=== PATIENT | male | born 1970 | race Caucasian/White ===

== ENCOUNTER 2016-07-18 13:13 | Emergency (ER) | payer OTHER ==
--- NOTE | 2016-07-18 13:43 | DIAGNOSTIC IMAGING REPORT ---
PROCEDURE: CT HEAD WITHOUT CONTRAST INDICATION: TRAUMA/INJURY TECHNIQUE: Axial CT images were acquired through the head. Coronal and sagittal reformations were created. COMPARISON: None. FINDINGS: No intracranial hemorrhage or extraaxial fluid collections. Ventricles are normal in size, shape and position. There is no mass, mass effect or midline shift. The lira-white matter differentiation is normal. There is no edema. The calvarium is intact. There is fluid in the left frontal and ethmoid sinuses. IMPRESSION: 1. No CT evidence of acute intracranial process. 2. Findings discussed with Wil at 02:[address] scans at this facility use dose modulation, iterative reconstruction, and/or weight-based dosing when appropriate to reduce radiation dose to as low as reasonably achievable.
--- NOTE | 2016-07-18 13:47 | DIAGNOSTIC IMAGING REPORT ---
PROCEDURE: CT CERVICAL SPINE W/O CONTRAST INDICATION: TRAUMA/INJURY TECHNIQUE: Noncontrast axial images with sagittal and coronal reformations. COMPARISON: None. FINDINGS: Osseous structures and disc spaces are normal. No evidence of an acute process or fracture. Alignment is normal. IMPRESSION: 1. Negative CT cervical spine. No evidence of an acute process or fracture.
--- NOTE | 2016-07-18 14:18 | ED ORDER SUMMARY ---
..... Patient: SANA HANNAH OrderSheet [facility] VisitID: [id number] [address] [place] [address] 46y, M Registration Date/Time: 07/18/2016 ORDER SHEET Weight: 88.4 kg (stated) Allergies: None GENERAL ORDERS: CT Cervical Spine wo Cont Urgent (13:07/18/2016 HBivens A.R.N.P.) (Ack 13:26 Ailyn) (13:35 DMaziarka R.N.) CT Head wo Cont Urgent (13:07/18/2016 HBivens A.R.N.P.) (Ack 13:26 Ailyn) (13:35 DMarexarka R.N.) MEDICATION ORDERS: IV FLUIDS: ORDER SHEET NOTES: [Electronically signed by Renay Lozano R.N. (15:07/18/2016)] [Electronically signed by Akiko De La Torre.R.N.P. (15:02 07/18/2016)] [Electronically locked/signed by Renay Lozano R.N. (15:07/18/2016)]
--- NOTE | 2016-07-18 14:18 | ED ORDER SUMMARY ---
..... Patient: SANA HANNAH OrderSheet [facility] VisitID: [id number] [address] [place] [address] 46y, M Registration Date/Time: 07/18/2016 ORDER SHEET Weight: 88.4 kg (stated) Allergies: None GENERAL ORDERS: CT Cervical Spine wo Cont Urgent (13:07/18/2016 HBivens A.R.N.P.) (Ack 13:26 Ailyn) (13:35 DMaziarka R.N.) CT Head wo Cont Urgent (13:07/18/2016 HBivens A.R.N.P.) (Ack 13:26 Ailyn) (13:35 DMarexarka R.N.) MEDICATION ORDERS: IV FLUIDS: ORDER SHEET NOTES: [Electronically signed by Renay Lozano R.N. (15:07/18/2016)] [Electronically signed by Akiko De La Torre.R.N.P. (15:02 07/18/2016)] [Electronically locked/signed by Renay Lozano R.N. (15:07/18/2016)]
--- NOTE | 2016-07-18 14:18 | ED NURSING NOTES ---
Clinical Report - Nurses [facility] [address] [place] [address] 07/18/2016 13:16 Patient: SANA HANNAH TRIAGE Triage time 13:18. Acuity: LEVEL 3. Chief Complaint: FALL (TREE, CRUSHED BETWEEN THE TREE AND THE LADDER). Alert. ALONSO COMA SCORE: Alonso Coma Scale: 15- eyes open spontaneously (4); best verbal response- oriented x 4 (5); best motor response- obeys commands (6). --13:24 Renay Lozano R.N. 13:18 07/18/16. BP: 134/105. HR: 85. RR: 20. O2 saturation: 95%. Temp: 97.9 F. Pain level now 6/10. --13:24 Renay Lozano R.N. Weight: 88.4 kg stated. Height/Length: 70 inches Per Patient. BMI: 28. --13:21 Renay Lozano R.N. Medications None. --14:26 Renay Lozano R.N. Allergies None. --14:26 Renay Lozano R.N. History Arrived by private vehicle, and accompanied by family. Location of injuries: neck. This occurred just prior to arrival. He has had neck pain. No loss of consciousness. 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 PAST MEDICAL HX: Tetanus status: up-to-date. SOCIAL HX: Current every day heavy tobacco smoker (cigarette)- less than 1 pack per day. History of heavy drug use: marijuana. Recently used drugs today. --13:24 Renay Lozano R.N. Location of injuries: left parietal area. --13:49 Renay Lozano R.N. PROBLEMS: Dental Caries. Abscess. Nephrolithiasis. Laceration. Tetanus Status. Last Tetanus. Renal Colic. Immunizations. Kidney stones . --13:20 Renay Lozano R.N. PHYSICAL ASSESSMENT To room via wheelchair. GENERAL / NEURO / PSYCH: Alert. Oriented X 4. Appears in distress. HEENT: Neck. RESPIRATORY: Respirations not labored. EXTREMITIES: Limited ROM present. SKIN: Skin is warm. --13:24 Renay Lozano R.N. NURSING PROGRESS NOTES C-collar applied. Patient identifiers checked. Call light placed in reach. --13:25 Renay Lozano R.N. Patient transported to [place] by stretcher with tech. ([id number]). --13:35 Renay Lozano R.N. Patient returned by stretcher with tech. (13:36). --13:36 Renay Lozano R.N. 13:34 07/18/2016 Site #1 started via IV in the left antecubital space with an 18g angiocath, with aseptic technique and good blood return; one attempt. Blood drawn: rainbow set. Labeled in the presence of the patient and held. Saline lock flushed with 10 mL saline. --13:39 Daniel Gonzalez R.N. Wound cleansed with sterile saline. --13:48 Renay Lozano R.N. 13:53 07/18/16. BP: 123/89. HR: 90. RR: 18. O2 saturation: 93%. --13:55 Renay Lozano R.N. C-collar applied (Removed). --13:55 Renay Lozano R.N. 14:06 07/18/2016 Site #1 removed upon discharge. Bandage applied. --14:06 Renay Lozano R.N. DISPOSITION / DISCHARGE Departure time: 14:25. Condition at departure: improved. No learning barriers present. Discharge instructions provided and reviewed with the patient. Patient verbalized understanding. Written instructions provided in Maldivian. The patient was discharged home and accompanied by spouse. He left the Emergency Department ambulatory and via private vehicle. Patient driving. --14:25 Renay Lozano R.N. 14:16 07/18/16. BP: 120/78. HR: 88. RR: 16. O2 saturation: 95%. Pain level now 4/10. --14:25 Renay Lozano R.N. Locked/Released at 07/18/2016 15:00 by Renay Lozano R.N.
--- NOTE | 2016-07-18 14:18 | ED NURSING NOTES ---
Clinical Report - Nurses [facility] [address] [place] [address] 07/18/2016 13:16 Patient: SANA HANNAH TRIAGE Triage time 13:18. Acuity: LEVEL 3. Chief Complaint: FALL (TREE, CRUSHED BETWEEN THE TREE AND THE LADDER). Alert. ALONSO COMA SCORE: Alonso Coma Scale: 15- eyes open spontaneously (4); best verbal response- oriented x 4 (5); best motor response- obeys commands (6). --13:24 Renay Lozano R.N. 13:18 07/18/16. BP: 134/105. HR: 85. RR: 20. O2 saturation: 95%. Temp: 97.9 F. Pain level now 6/10. --13:24 Renay Lozano R.N. Weight: 88.4 kg stated. Height/Length: 70 inches Per Patient. BMI: 28. --13:21 Renay Lozano R.N. Medications None. --14:26 Renay Lozano R.N. Allergies None. --14:26 Renay Lozano R.N. History Arrived by private vehicle, and accompanied by family. Location of injuries: neck. This occurred just prior to arrival. He has had neck pain. No loss of consciousness. 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 PAST MEDICAL HX: Tetanus status: up-to-date. SOCIAL HX: Current every day heavy tobacco smoker (cigarette)- less than 1 pack per day. History of heavy drug use: marijuana. Recently used drugs today. --13:24 Renay Lozano R.N. Location of injuries: left parietal area. --13:49 Renay Lozano R.N. PROBLEMS: Dental Caries. Abscess. Nephrolithiasis. Laceration. Tetanus Status. Last Tetanus. Renal Colic. Immunizations. Kidney stones . --13:20 Renay Lozano R.N. PHYSICAL ASSESSMENT To room via wheelchair. GENERAL / NEURO / PSYCH: Alert. Oriented X 4. Appears in distress. HEENT: Neck. RESPIRATORY: Respirations not labored. EXTREMITIES: Limited ROM present. SKIN: Skin is warm. --13:24 Renay Lozano R.N. NURSING PROGRESS NOTES C-collar applied. Patient identifiers checked. Call light placed in reach. --13:25 Renay Lozano R.N. Patient transported to [place] by stretcher with tech. ([id number]). --13:35 Renay Lozano R.N. Patient returned by stretcher with tech. (13:36). --13:36 Renay Lozano R.N. 13:34 07/18/2016 Site #1 started via IV in the left antecubital space with an 18g angiocath, with aseptic technique and good blood return; one attempt. Blood drawn: rainbow set. Labeled in the presence of the patient and held. Saline lock flushed with 10 mL saline. --13:39 Daniel Gonzalez R.N. Wound cleansed with sterile saline. --13:48 Renay Lozano R.N. 13:53 07/18/16. BP: 123/89. HR: 90. RR: 18. O2 saturation: 93%. --13:55 Renay Lozano R.N. C-collar applied (Removed). --13:55 Renay Lozano R.N. 14:06 07/18/2016 Site #1 removed upon discharge. Bandage applied. --14:06 Renay Lozano R.N. DISPOSITION / DISCHARGE Departure time: 14:25. Condition at departure: improved. No learning barriers present. Discharge instructions provided and reviewed with the patient. Patient verbalized understanding. Written instructions provided in Zambian. The patient was discharged home and accompanied by spouse. He left the Emergency Department ambulatory and via private vehicle. Patient driving. --14:25 Renay Lozano R.N. 14:16 07/18/16. BP: 120/78. HR: 88. RR: 16. O2 saturation: 95%. Pain level now 4/10. --14:25 Renay Lozano R.N. Locked/Released at 07/18/2016 15:00 by Renay Lozano R.N.
--- NOTE | 2016-07-18 14:18 | ED CLINICAL REPORT ---
Clinical Report - Physicians/Mid Levels [facility] [address] [place] [address] 07/18/2016 13:16 Patient: SANA HANNAH Time Seen: 1310; upon arrival, initial patient contact, initial documentation, patient care assumed. Arrived- By private vehicle. Historian- patient. HISTORY OF PRESENT ILLNESS Chief Complaint: INJURY TO HEAD. Location of injuries- head. The injury occurred just prior to arrival. ( head got stuck between tree and ladder, standing on ladder, cutting tree, tree started to lean and got head caught between tree and metal ladder, got head out, came down off ladder and came here). Occurred at home. The patient complains of moderate pain. The patient sustained a blow to the head and complains of neck pain. No loss of consciousness or seizure. Not dazed. REVIEW OF SYSTEMS No numbness, loss of vision, chest pain, weakness or difficulty breathing. He sustained skin laceration. All systems otherwise negative, except as recorded above. PAST HISTORY See nurses notes. PROBLEMS: Dental Caries. Abscess. Nephrolithiasis. Laceration. Tetanus Status. Last Tetanus. Renal Colic. Immunizations. Kidney stones . --13:20 Renay Lozano R.N. Tetanus immunization status is unknown. SOCIAL HISTORY Light tobacco smoker. Occasional alcohol use. History of occasional drug use: marijuana. No recent travel. Is a local resident. FAMILY HISTORY No significant family medical history. ADDITIONAL NOTES The nursing notes have been reviewed with agreement regarding the chief complaint, HPI, ROS, PMH and patient medications and allergies. PHYSICAL EXAM Vital Signs: 07/18/2016 13:18 BP: 134/105. HR: 85. RR: 20. O2 saturation: 95%. Temp: 97.9 F. Have been reviewed as abnormal and appear to be correct. Hypertensive. Heart rate normal. Respiratory rate normal. Temperature normal. Oxygen saturation normal. Appearance: Alert. No acute distress. Head: Head tender. No swelling of head. Left parietal area: moderate tenderness, subcutaneous 1.0 cm laceration and visualized foreign body of the upper anterior aspect of the left parietal area. No erythema, swelling, abrasion, ecchymosis or puncture wound. No deformity. Eyes: Pupils equal, round and reactive to light. EOM intact. ENT: No dental injury. Pharynx normal. Neck: Painful ROM in the neck. Mild pain in the entire posterior neck upon turning the head to the right, turning the head to the left, lifting the head, flexing the neck and extending the neck. Tenderness present. Mild vertebral tenderness of the upper, mid and lower cervical spine. (c collar immediately applied after neck exam, and pt placed into c spine precautions). CVS: Normal heart rate and rhythm. Heart sounds normal. Pulses normal. Respiratory: Breath sounds normal. Chest nontender. Abdomen: Soft and nontender. No organomegaly. Back: No tenderness. ROM normal. Skin: Skin intact. Skin warm and dry. Normal skin color. Normal skin turgor. Extremities: Normal inspection. Pelvis stable. Extremities atraumatic. No lower extremity edema. Neuro: Oriented X 3. Mood/affect normal. Speech normal. No motor deficit. No sensory deficit. LABS, X-RAYS, AND EKG CT C-Spine: No acute disease. (IMPRESSION: 1. Negative CT cervical spine. No evidence of an acute process or fracture. Electronically Final signed by:Freddy Young MD 07/18/2016 1:47:44 PM). The study was interpreted by the radiologist and discussed with the radiologist. CT Head: No acute disease. (IMPRESSION: 1. No CT evidence of acute intracranial process. 2. Findings discussed with Wil at 02:[address] scans at this facility use dose modulation, iterative reconstruction, and/or weight-based dosing when appropriate to reduce radiation dose to as low as reasonably achievable. Electronically Final signed by:Freddy Young MD 07/18/2016 1:43:09 PM). The study was interpreted by the radiologist and discussed with the radiologist. PROGRESS AND PROCEDURES Removal of Soft Tissue Foreign Body: The foreign body was wood. Located in the scalp. Prior to the procedure the risks, benefits and alternatives to the procedure were explained. Foreign body visualized using forceps. wound irrigated and cleaned out after per nurse/tech, see other notes. Tetanus immunization up-to-date. Course of Care: Lac to L side of head 1cm long, options discussed with pt to either close with staple or leave open, risks discussed with doing no closure vs leaving it open, and fb risks, pt decided to leave wound open so that he could clean it out even better at home over the next few days x2 pieces each about 1/2 cm long of wood removed from cut c collar removed after ct results. Patient counseled in person regarding the patient's stable condition, test results and diagnosis. Differential Diagnosis: Other possible considerations: head injury, icb, sah, fx, cspine fx, concussion, lac, fb, contusions. Above considerations are based on history, physical exam, reassessment and other information. Differential diagnosis was discussed with patient. Disposition: Discharged home in good and improved condition (14:17). Condition: good and stable. CLINICAL IMPRESSION Deep laceration to the scalp. Foreign body present.Treatment of laceration not delayed. No infection. Minor closed head injury. Left cerebral laceration. No loss of consciousness. INSTRUCTIONS Apply ice for 20 minutes four times a day for two days until better. Don't apply ice directly to skin. Protect wound and keep wound area clean. Soak in warm soapy water. Apply bacitracin twice daily. Warnings: HEAD INJURY PRECAUTIONS: An observer must check on the patient frequently for the next 24 hours to confirm that the patient responds as expected, is not confused, has no new weakness or numbness, and has no other problems. TETANUS: You were given a tetanus shot during your visit. Make a note for future reference. GENERAL WARNINGS: Return or contact your physician immediately if your condition worsens or changes unexpectedly, if not improving as expected, or if other problems arise. Specifically return if problem worsens. Prescription Medications: Cephalexin 500 mg: take 1 capsule orally every 12 hours for 10 days. No refill. Ultram 50 mg tablets: take 1-2 orally every 6 hours as needed for pain. Dispense twenty (20). No refills. Substitution is permissible. Follow-up: Follow up with your doctor in about three days even if well and for wound check. Call for an appointment. Summary of care provided to patient. Understanding of the discharge instructions verbalized by patient. (Electronically signed by Akiko De La Torre A.R.N.P. 07/18/2016 15:02)
--- NOTE | 2016-07-18 15:02 | ED MED RECONCILIATION SUMMARY ---
Patient: SANA HANNAH Medication Reconciliation Report [facility] VisitID: [id number] [address] [place] [address] 46y, M Registration Date/Time: 07/18/2016 Weight: 88.4 kg Height/Length: 70 in. BMI: 28.0 ALLERGIES: None The patient's Home Medications are listed below: NONE. The source(s) of the original Home Medication information: Not obtained. The following Medications were given to the patient in the Emergency Department: None. The following Medications were prescribed to the patient: Cephalexin 500 mg: take 1 capsule orally every 12 hours for 10 days. No refill. -- Akiko De La Torre A.R.N.P. Ultram 50 mg tablets: take 1-2 orally every 6 hours as needed for pain. Dispense twenty (20). No refills. Substitution is permissible. -- Akiko De La Torre A.R.N.P.
--- NOTE | 2016-07-18 15:02 | ED MAR SUMMARY ---
..... Medication Administration Record [facility] [address] [place] [address] Patient: SANA HANNAH Visit ID: [id number] 46y, M Weight: 88.4 kg Height/Length: 70 in BMI: 28 ALLERGIES: None
--- NOTE | 2016-07-18 15:02 | ED MAR SUMMARY ---
..... Medication Administration Record [facility] [address] [place] [address] Patient: SANA HANNAH Visit ID: [id number] 46y, M Weight: 88.4 kg Height/Length: 70 in BMI: 28 ALLERGIES: None
--- NOTE | 2016-07-18 15:02 | ED MED RECONCILIATION SUMMARY ---
Patient: SANA HANNAH Medication Reconciliation Report [facility] VisitID: [id number] [address] [place] [address] 46y, M Registration Date/Time: 07/18/2016 Weight: 88.4 kg Height/Length: 70 in. BMI: 28.0 ALLERGIES: None The patient's Home Medications are listed below: NONE. The source(s) of the original Home Medication information: Not obtained. The following Medications were given to the patient in the Emergency Department: None. The following Medications were prescribed to the patient: Cephalexin 500 mg: take 1 capsule orally every 12 hours for 10 days. No refill. -- Akiko De La Torre A.R.N.P. Ultram 50 mg tablets: take 1-2 orally every 6 hours as needed for pain. Dispense twenty (20). No refills. Substitution is permissible. -- Akiko De La Torre A.R.N.P.
--- NOTE | 2016-07-18 15:02 | ED DISCHARGE INSTRUCTIONS ---
Patient: SANA HANNAH General Instructions [facility] VisitID: [id number] Rob[place] [address] 46y, M Registration Date/Time: 07/18/2016 Deep laceration to the scalp. Foreign body present.Treatment of laceration not delayed. No infection. Minor closed head injury. Left cerebral laceration. No loss of consciousness. INSTRUCTIONS Apply ice for 20 minutes four times a day for two days until better. Don't apply ice directly to skin. Protect wound and keep wound area clean. Soak in warm soapy water. Apply bacitracin twice daily. Warnings: HEAD INJURY PRECAUTIONS: An observer must check on the patient frequently for the next 24 hours to confirm that the patient responds as expected, is not confused, has no new weakness or numbness, and has no other problems. TETANUS: You were given a tetanus shot during your visit. Make a note for future reference. GENERAL WARNINGS: Return or contact your physician immediately if your condition worsens or changes unexpectedly, if not improving as expected, or if other problems arise. Specifically return if problem worsens. Prescription Medications: Cephalexin 500 mg: take 1 capsule orally every 12 hours for 10 days. No refill. Ultram 50 mg tablets: take 1-2 orally every 6 hours as needed for pain. Dispense twenty (20). No refills. Substitution is permissible. Follow-up: Follow up with your doctor in about three days even if well and for wound check. Call for an appointment. Summary of care provided to patient. Understanding of the discharge instructions verbalized by patient. ADDITIONAL INFORMATION Head Injury, No Wake-Up (Adult) You have had a head injury. It does not appear serious at this time. Symptoms of a more serious problem (concussion, bruising, or bleeding in the brain) may appear later. Therefore, watch for the WARNING SIGNS listed below. Home Care: Your healthcare provider will tell you whether its okay to drive. If so, you can drive yourself home. For the next day or so, be careful when driving or using heavy machinery until you are sure you have no delayed symptoms. During the next 24 hours someone must stay with you to check for the signs below. It is not necessary to stay awake or be awakened during the night. If you have swelling of the face or scalp, apply an ice pack (ice cubes in a plastic bag, wrapped in a towel) for 20 minutes. Do this every 1-2 hours until the swelling starts to go down. Do not use aspirin or ibuprofen (Motrin, Advil) after a head injury.You may use acetaminophen (Tylenol)to control pain, unless another pain medicine was prescribed. [NOTE: If you have chronic liver or kidney disease or ever had a stomach ulcer or GI bleeding, talk with your doctor before using these medicines.] For the next 24 hours: Do not take alcohol, sedatives or medicines that make you sleepy. Avoid strenuous activities. No lifting or straining. If you have had any symptoms of a concussion today (nausea, vomiting, dizziness, confusion, headache, memory loss or if you were knocked out), do not return to sports or any activity that could result in another head injury until all symptoms are gone and you have been cleared by your doctor. A second head injury before fully recovering from the first one can lead to serious brain injury. Follow Up with your doctor if symptoms are not improving after 24 hours, or as directed. [NOTE: A radiologist will review any X-rays or CT scans that were taken. We will notify you of any new findings that may affect your care.] Get Prompt Medical Attention if any of the followingWARNING SIGNS occur: Repeated vomiting Severe or worsening headache or dizziness Unusual drowsiness, or unable to awaken as usual Confusion or change in behavior or speech, memory loss, blurred vision Convulsion (seizure) Increasing scalp or face swelling Redness, warmth or pus from the swollen area Fluid drainage or bleeding from the nose or ears Laceration, Scalp (Sutures Or [place]) A laceration is a cut through the skin. This will require stitches (sutures) or cynthia if it is deep. Home care The following guidelines will help you care for your laceration at home: During the first two days you may carefully rinse your hair in the shower to remove blood, glass or dirt particles. After two days you may shower and shampoo your hair normally. Have someone help you clean your wound every day: In the shower, wash the area with soap and water. Use a wet cotton swab to loosen and remove any blood or crust that forms. After cleaning, keep the wound clean and dry. Talk with your doctor before applying any antibiotic ointment to the wound. Reapply a fresh bandage. Do not put your head under water (no swimming) until the stitches or cynthia have been removed. The doctor may prescribe an antibiotic cream or ointment to prevent infection. Do not stop taking this medication until you have finished the prescribed course or the doctor tells you to stop. The doctor may also prescribe medications for pain. Follow the doctors instructions for taking these medications. If you have chronic liver or kidney disease or ever had a stomach ulcer or GI bleeding, talk with your doctor before using these medicines. Follow-up care Follow up with your health care provider. Most scalp wounds heal within seven days. However, an infection can sometimes occur. Check the wound daily for the warning signs listed below. Stitches or cynthia should be removed from the scalp in about 57 days. When to seek medical care Get prompt medical attention if any of these occur: Increasing pain in the wound Redness, swelling, or pus coming from the wound Fever of 100.4F (38C) or higher, or as directed by your health care provider If stitches or cynthia come apart or fall out before your next appointment If the wound edges re-open Bleeding not controlled by direct pressure Head Injury, No Wake-Up (Adult) You have had a head injury. It does not appear serious at this time. Symptoms of a more serious problem (concussion, bruising, or bleeding in the brain) may appear later. Therefore, watch for the WARNING SIGNS listed below. Home Care: Your healthcare provider will tell you whether its okay to drive. If so, you can drive yourself home. For the next day or so, be careful when driving or using heavy machinery until you are sure you have no delayed symptoms. During the next 24 hours someone must stay with you to check for the signs below. It is not necessary to stay awake or be awakened during the night. If you have swelling of the face or scalp, apply an ice pack (ice cubes in a plastic bag, wrapped in a towel) for 20 minutes. Do this every 1-2 hours until the swelling starts to go down. Do not use aspirin or ibuprofen (Motrin, Advil) after a head injury.You may use acetaminophen (Tylenol)to control pain, unless another pain medicine was prescribed. [NOTE: If you have chronic liver or kidney disease or ever had a stomach ulcer or GI bleeding, talk with your doctor before using these medicines.] For the next 24 hours: Do not take alcohol, sedatives or medicines that make you sleepy. Avoid strenuous activities. No lifting or straining. If you have had any symptoms of a concussion today (nausea, vomiting, dizziness, confusion, headache, memory loss or if you were knocked out), do not return to sports or any activity that could result in another head injury until all symptoms are gone and you have been cleared by your doctor. A second head injury before fully recovering from the first one can lead to serious brain injury. Follow Up with your doctor if symptoms are not improving after 24 hours, or as directed. [NOTE: A radiologist will review any X-rays or CT scans that were taken. We will notify you of any new findings that may affect your care.] Get Prompt Medical Attention if any of the followingWARNING SIGNS occur: Repeated vomiting Severe or worsening headache or dizziness Unusual drowsiness, or unable to awaken as usual Confusion or change in behavior or speech, memory loss, blurred vision Convulsion (seizure) Increasing scalp or face swelling Redness, warmth or pus from the swollen area Fluid drainage or bleeding from the nose or ears Head Injury With Wake-Up (Adult) You have had a head injury. It does not appear serious at this time. Symptoms of a more serious problem (concussion, bruising, or bleeding in the brain) may appear later. Therefore, watch for the WARNING SIGNS listed below. Home Care: During the next 24 hours someone must stay with you. This person should wake you every 2 hours to check for the signs below. If you have swelling of the face or scalp, apply an ice pack (ice cubes in a plastic bag, wrapped in a towel) for 20 minutes every 1-2 hours until the swelling starts to go down. Do not use aspirin or ibuprofen (Motrin, Advil) after a head injury. You may use acetaminophen (Tylenol) to control pain, unless another pain medicine was prescribed. [NOTE: If you have chronic liver or kidney disease or ever had a stomach ulcer or GI bleeding, talk with your doctor before using these medicines.] For the next 24 hours: Do not take alcohol, sedatives, or medicines that make you sleepy. Do not drive or operate machinery. Avoid strenuous activities. No lifting or straining. If you have had any symptoms of a concussion today (nausea, vomiting, dizziness, confusion, headache, memory loss, or you were knocked out), do not return to sports or any activity that could result in another head injury until all symptoms are gone and you have been cleared by your doctor. A second head injury before fully recovering from the first one can lead to serious brain injury. Follow Up with your doctor if symptoms are not improving after 24 hours, or as directed. [NOTE: A radiologist will review any X-rays or CT scans that were taken. We will notify you of any new findings that may affect your care.] Get Prompt Medical Attention if any of the following WARNING SIGNS occur: Repeated vomiting Severe or worsening headache or dizziness Unusual drowsiness, or unable to awaken as usual Confusion or change in behavior or speech, memory loss, blurred vision Convulsion (seizure) Increasing scalp or face swelling Redness, warmth or pus from the swollen area Fluid drainage or bleeding from the nose or ears Diphtheria Toxoid Adsorbed, Pertussis Vaccine, Acellular (Adsorbed), Tetanus Toxoid, Adsorbed Suspension for injection What is this medicine? DIPHTHERIA and TETANUS TOXOIDS; PERTUSSIS VACCINE (dif THEER ee and TET n us TOK soids; per TUS iss vak SEEN) is used to prevent diphtheria, tetanus, and pertussis infections. How should I use this medicine? This vaccine is for injection into a muscle. It is given by a health before and after school daycare worker. A copy of Vaccine Information Statements will be given before each vaccination. Read this sheet carefully each time. The sheet may change frequently. Talk to your director child regarding the use of this vaccine in children. While the DTP vaccine may be given to children ages 6 weeks to 7 years and the Tdap vaccine may be given to children at least 10 years old, precautions do apply. What side effects may I notice from receiving this medicine? Side effects that you should report to your doctor or health before and after school daycare worker as soon as possible: allergic reactions like skin rash, itching or hives, swelling of the face, lips, or tongue breathing problems fever of 103 degrees F or more flu-like symptoms inconsolable crying infection pain, tingling, numbness in the hands or feet seizures swelling of arm or leg that was injected unusually weak or tired Side effects that usually do not require immediate medical attention (report these side effects to your doctor or health before and after school daycare worker if they continue or are bothersome): fussy, irritable loss of appetite fever of 102 degrees F or less pain, tenderness, redness, swelling, or a 'knot' at site where injected vomiting What may interact with this medicine? immune globulin medicines that suppress your immune function like adalimumab, anakinra, infliximab medicines to treat cancer medicines that treat or prevent blood clots like warfarin, enoxaparin, and dalteparin steroid medicines like prednisone or cortisone What if I miss a dose? It is important not to miss your dose. Call your doctor or health before and after school daycare worker if you are unable to keep an appointment. Where should I keep my medicine? This drug is given in a hospital or clinic and will not be stored at home. What should I tell my health care provider before I take this medicine? They need to know if you have any of these conditions: blood disorders like hemophilia fever or infection immune system problems neurologic disease seizures an unusual or allergic reaction to vaccines, thimerosal, latex, other medicines, foods, dyes, or preservatives or trying to get breast-feeding What should I watch for while using this medicine? See your health care provider for all shots of this vaccine as directed. To have protection from infection, you must have 3 shots of this vaccine plus boosters as needed. Tell your doctor right away if you have any serious or unusual side effects after getting this vaccine. Cephalexin Monohydrate Oral tablet What is this medicine? CEPHALEXIN (sef a CANDI in) is a cephalosporin antibiotic. It is used to treat certain kinds of bacterial infections It will not work for colds, flu, or other viral infections. How should I use this medicine? Take this medicine by mouth with a full glass of water. Follow the directions on the prescription label. This medicine can be taken with or without food. Take your medicine at regular intervals. Do not take your medicine more often than directed. Take all of your medicine as directed even if you think you are better. Do not skip doses or stop your medicine early. Talk to your director child regarding the use of this medicine in children. While this drug may be prescribed for selected conditions, precautions do apply. What side effects may I notice from receiving this medicine? Side effects that you should report to your doctor or health before and after school daycare worker as soon as possible: allergic reactions like skin rash, itching or hives, swelling of the face, lips, or tongue breathing problems pain or trouble passing urine redness, blistering, peeling or loosening of the skin, including inside the mouth severe or watery diarrhea unusually weak or tired yellowing of the eyes, skin Side effects that usually do not require medical attention (report to your doctor or health before and after school daycare worker if they continue or are bothersome): gas or heartburn genital or anal irritation headache joint or muscle pain nausea, vomiting What may interact with this medicine? probenecid some other antibiotics What if I miss a dose? If you miss a dose, take it as soon as you can. If it is almost time for your next dose, take only that dose. Do not take double or extra doses. There should be at least 4 to 6 hours between doses. Where should I keep my medicine? Keep out of the reach of children. Store at room temperature between 59 and 86 degrees F (15 and 30 degrees C). Throw away any unused medicine after the expiration date. What should I tell my health care provider before I take this medicine? They need to know if you have any of these conditions: kidney disease stomach or intestine problems, especially colitis an unusual or allergic reaction to cephalexin, other cephalosporins, penicillins, other antibiotics, medicines, foods, dyes or preservatives or trying to get breast-feeding What should I watch for while using this medicine? Tell your doctor or health before and after school daycare worker if your symptoms do not begin to improve in a few days. Do not treat diarrhea with over the counter products. Contact your doctor if you have diarrhea that lasts more than 2 days or if it is severe and watery. If you have diabetes, you may get a false-positive result for sugar in your urine. Check with your doctor or health before and after school daycare worker. Tramadol Hydrochloride Oral tablet What is this medicine? TRAMADOL (TRA ma dole) is a pain reliever. It is used to treat moderate to severe pain in adults. How should I use this medicine? Take this medicine by mouth with a full glass of water. Follow the directions on the prescription label. If the medicine upsets your stomach, take it with food or milk. Do not take more medicine than you are told to take. Talk to your director child regarding the use of this medicine in children. Special care may be needed. What side effects may I notice from receiving this medicine? Side effects that you should report to your doctor or health before and after school daycare worker as soon as possible: allergic reactions like skin rash, itching or hives, swelling of the face, lips, or tongue breathing difficulties, wheezing confusion itching light headedness or fainting spells redness, blistering, peeling or loosening of the skin, including inside the mouth seizures Side effects that usually do not require medical attention (report to your doctor or health before and after school daycare worker if they continue or are bothersome): constipation dizziness drowsiness headache nausea, vomiting What may interact with this medicine? Do not take this medicine with any of the following medications: MAOIs like Carbex, Eldepryl, Marplan, Nardil, and Parnate This medicine may also interact with the following medications: alcohol or medicines that contain alcohol antihistamines benzodiazepines bupropion carbamazepine or oxcarbazepine clozapine cyclobenzaprine digoxin furazolidone linezolid medicines for depression, anxiety, or psychotic disturbances medicines for migraine headache like almotriptan, eletriptan, frovatriptan, naratriptan, rizatriptan, sumatriptan, zolmitriptan medicines for pain like pentazocine, buprenorphine, butorphanol, meperidine, nalbuphine, and propoxyphene medicines for sleep muscle relaxants naltrexone phenobarbital phenothiazines like perphenazine, thioridazine, chlorpromazine, mesoridazine, fluphenazine, prochlorperazine, promazine, and trifluoperazine procarbazine warfarin What if I miss a dose? If you miss a dose, take it as soon as you can. If it is almost time for your next dose, take only that dose. Do not take double or extra doses. Where should I keep my medicine? Keep out of the reach of children. Store at room temperature between 15 and 30 degrees C (59 and 86 degrees F). Keep container tightly closed. Throw away any unused medicine after the expiration date. What should I tell my health care provider before I take this medicine? They need to know if you have any of these conditions: brain tumor depression drug abuse or addiction head injury if you frequently drink alcohol containing drinks kidney disease or trouble passing urine liver disease lung disease, asthma, or breathing problems seizures or epilepsy suicidal thoughts, plans, or attempt; a previous suicide attempt by you or a family member an unusual or allergic reaction to tramadol, codeine, other medicines, foods, dyes, or preservatives or trying to get breast-feeding What should I watch for while using this medicine? Tell your doctor or health before and after school daycare worker if your pain does not go away, if it gets worse, or if you have new or a different type of pain. You may develop tolerance to the medicine. Tolerance means that you will need a higher dose of the medicine for pain relief. Tolerance is normal and is expected if you take this medicine for a long time. Do not suddenly stop taking your medicine because you may develop a severe reaction. Your body becomes used to the medicine. This does NOT mean you are addicted. Addiction is a behavior related to getting and using a drug for a non-medical reason. If you have pain, you have a medical reason to take pain medicine. Your doctor will tell you how much medicine to take. If your doctor wants you to stop the medicine, the dose will be slowly lowered over time to avoid any side effects. You may get drowsy or dizzy. Do not drive, use machinery, or do anything that needs mental alertness until you know how this medicine affects you. Do not stand or sit up quickly, especially if you are an older patient. This reduces the risk of dizzy or fainting spells. Alcohol can increase or decrease the effects of this medicine. Avoid alcoholic drinks. You may have constipation. Try to have a bowel movement at least every 2 to 3 days. If you do not have a bowel movement for 3 days, call your doctor or health before and after school daycare worker. Your mouth may get dry. Chewing sugarless gum or sucking hard candy, and drinking plenty of water may help. Contact your doctor if the problem does not go away or is severe. You have been given the following additional information: HEAD INJURY, No Wake-Up (Adult) Laceration, Scalp HEAD INJURY, No Wake-Up (Adult) HEAD INJURY with Wake-Up (Adult) Diphtheria Toxoid Adsorbed, Pertussis Vaccine, Acellular (Adsorbed), Tetanus Toxoid, Adsorbed Suspension for injection Cephalexin Monohydrate Oral tablet Tramadol Hydrochloride Oral tablet (Electronically signed by Akiko De La Torre A.R.N.P. 07/18/2016 15:02)
== END 2016-07-18 14:25 | disposition home or self-care (01) ==
LOC: ED SRH 13:13
DX: S01.02XA Laceration with foreign body of scalp, initial encounter (principal); S09.90XA Unspecified injury of head, initial encounter; W23.1XXA Caught, crushed, jammed, or pinched between stationary objects, initial encounter; Y93.H2 Activity, gardening and landscaping; Y92.007 Garden or yard of unspecified non-institutional (private) residence as the place of occurrence of the external cause; Y99.9 Unspecified external cause status

== ENCOUNTER 2016-09-21 15:08 | Emergency (ER) | payer OTHER ==
--- NOTE | 2016-09-21 16:20 | DIAGNOSTIC IMAGING REPORT ---
PROCEDURE: CT ABDOMEN/PELVIS W/O CONTRAST INDICATION: Right flank pain and hematuria. TECHNIQUE: Noncontrast axial images were obtained of the entire abdomen and pelvis with sagittal and coronal reformations. COMPARISON: CT abdomen/pelvis 09/09/2013. FINDINGS: ABDOMEN: There are three nonobstructing right renal calculi (one - 4.5 mm). No additional urinary calculi. No hydronephrosis. Lung base are clear. Heart size is normal. Liver, gallbladder, pancreas, spleen and adrenal glands are normal. Tortuous abdominal aorta. Mild descending colon diverticulosis. Stool throughout the large bowel. PELVIS: Moderate sigmoid diverticulosis. Appendix not visualized but no evidence of acute appendicitis. There is no pelvic mass, inflammatory changes or free fluid. Mild degenerative changes of the spine. IMPRESSION: 1. Three nonobstructing right renal calculi 2. Diverticulosis 3. Obstipation 4. Results discussed with Kymberly De León. All CT scans at this facility use dose modulation, iterative reconstruction, and/or weight-based dosing when appropriate to reduce radiation dose to as low as reasonably achievable.
--- NOTE | 2016-09-21 16:31 | ED NURSING NOTES ---
Clinical Report - Nurses [facility] [place] [address] 09/21/2016 15:08 Patient: SANA HANNAH TRIAGE Triage time 15:18. Acuity: LEVEL 3. Chief Complaint: (Lower Back Pain). --15:21 Sheriff Singh R.N. 15:18 09/21/16. BP: 132/81. HR: 90. RR: 20. O2 saturation: 100%. Temp: 99.5 F. Pain level now: 12/05. --15:21 Sheriff Singh R.N. Weight: 88.4 kg stated. Height/Length: 71 inches Per Patient. BMI: 27.2. --15:20 Sheriff Singh R.N. Medications None. --15:19 Sheriff Singh R.N. Allergies None. --15:19 Sheriff Singh R.N. History Arrived by private vehicle. Historian: patient. This started last night. ( History stones). SURGERY HX: Lithotripsy. SOCIAL HX: Light tobacco smoker- less than 1/2 a pack per day. History of drug use: marijuana. No alcohol use. FALL RISK ASSESSMENT: Fall risk assessment completed. No fall risk identified. NUTRITIONAL RISK ASSESSMENT: The nutritional risk assessment revealed no deficiencies. FUNCTIONAL ASSESSMENT: Functional assessment: no impairments noted. LEARNING NEEDS ASSESSMENT: The learning needs assessment revealed no barriers. SKIN INTEGRITY ASSESSMENT: Skin integrity risk assessment completed. No skin integrity risk identified. --15:21 Sheriff Singh R.N. PROBLEMS: Head Injury. Dental Caries. Abscess. Nephrolithiasis. Laceration. Tetanus Status. Last Tetanus. Renal Colic. Immunizations. Kidney stones . --15:19 Sheriff Singh R.N. Interventions ID band on patient. --15:21 Sheriff Singh R.N. NURSING PROGRESS NOTES 15:40 09/21/2016 Site #1 started via IV in the left antecubital space with an 20g angiocath, with aseptic technique and good blood return; one attempt. Blood drawn: rainbow set. Labeled in the presence of the patient and sent to the lab. Saline lock flushed with 10 mL saline. --15:40 Sheriff Singh R.N. 15:40 09/21/2016 Started bag #1 1000 mL IV Fluids IV NS (Saline); at 1000 mL/hr over 1 hour(s) via site #1 via IV pump. Allergies verified and confirmed 5 rights. IV patency established site checked: no pain, redness, or swelling flushed thoroughly pre- and post-medication administration. --15:40 Sheriff Singh R.N. 15:41 09/21/2016 Dilaudid (HYDROmorphone HCl PF) IVP 1 mg given. via site #1. Allergies verified, confirmed 5 rights and sedative warning given to the patient. IV patency established. IV site checked: no pain, redness, or swelling. IV flushed thoroughly pre- and post-medication administration. IVP given by PA. --15:41 Sheriff Singh R.N. 15:49 09/21/2016 Zofran (Ondansetron HCl) IVP 4 mg given. via site #1. Allergies verified and confirmed 5 rights. IV patency established. IV site checked: no pain, redness, or swelling. IV flushed thoroughly pre- and post-medication administration. IVP given by RN. --15:49 Sheriff Singh R.N. 16:32 09/21/2016 Dilaudid (HYDROmorphone HCl PF) IVP 0.5 mg given. via site #1. Allergies verified, confirmed 5 rights and sedative warning given to the patient. IV patency established. IV site checked: no pain, redness, or swelling. IV flushed thoroughly pre- and post-medication administration. IVP given by RN. --16:33 Sheriff Singh R.N. 16:33 09/21/2016 Flomax (Tamsulosin HCl) PO 0.4 mg given. Allergies verified and confirmed 5 rights. --16:33 Sheriff Singh R.N. DISPOSITION / DISCHARGE Condition at departure: stable. No learning barriers present. Discharge instructions provided and reviewed with the patient. Reviewed medication(s) side effects, precautions, dosing and course information. Prescription(s) given to the patient. Work note given. Patient verbalized understanding. Written instructions provided in Lao. The patient was discharged by the physician dental office assistant. He was discharged home and unaccompanied at time of discharge. He left the Emergency Department ambulatory and via private vehicle. Patient driving. --16:42 Sheriff Singh R.N. 16:41 09/21/16. BP: 120/75. HR: 68. RR: 20. O2 saturation: 92%. Pain level now: 08/05. --16:42 Sheriff Singh R.N. Locked/Released at 09/21/2016 16:42 by Sheriff Singh R.N.
--- NOTE | 2016-09-21 16:31 | ED ORDER SUMMARY ---
..... Patient: SANA HANNAH OrderSheet [facility] VisitID: [id number] [address] [place] [address] 46y, M Registration Date/Time: 09/21/2016 ORDER SHEET Weight: 88.4 kg (stated) Allergies: None GENERAL ORDERS: CBC w Diff Urgent (15:34 09/21/2016 ABlanchette PA-C) (Ack 15:37 IJurca ER Tech1) CMP Urgent (15:34 09/21/2016 ABlanchette PA-C) (Ack 15:37 IJurca ER Tech1) UA-Culture if indicated Urgent (15:34 09/21/2016 ABlanchette PA-C) (Ack 15:37 IJurca ER Tech1) CT Abd/Pel wo Cont (history of obstructing stones, acute pain starting early am) Urgent (15:41 09/21/2016 ABlanchette PA-C) (Ack 15:53 IJurca ER Tech1) (16:04 Calli) MEDICATION ORDERS: Flomax PO 0.4 mg (Do not crush or chew, NOW) (16:28 09/21/2016 ABlanchette PA-C) (16:33 SSambou R.N.) IV FLUIDS: Dilaudid IV 1 mg (HIGH ALERT MEDICATION, NOW) (15:34 09/21/2016 ABlanchette PA-C) (15:41 SSambou R.N.) IV NS : initial bolus none -, then 1000 mL/hr for X1 (NOW) (15:34 09/21/2016 ABlanchette PA-C) (15:40 SSambou R.N.) Zofran IV 4 mg (NOW) (15:42 09/21/2016 ABlanchette PA-C) (15:49 SSambou R.N.) Dilaudid IV 0.5 mg (HIGH ALERT MEDICATION, NOW) (16:28 09/21/2016 ABlanchette PA-C) (16:33 SSambou R.N.) ORDER SHEET NOTES: [Electronically signed by Sheriff Kelly Singh (16:42 09/21/2016)] [Electronically signed by Kymberly De León PA-C (23:48 09/21/2016)] [Electronically locked/signed by Sheriff Kelly Singh (16:42 09/21/2016)]
--- NOTE | 2016-09-21 16:31 | ED CLINICAL REPORT ---
Clinical Report - Physicians/Mid Levels [facility] [address] [place] [address] 09/21/2016 15:08 [id number] Time Seen: 15:27; initial patient contact. Arrived- By private vehicle. Historian- patient. HISTORY OF PRESENT ILLNESS Chief Complaint: FLANK PAIN and NAUSEA. This started today pt with known history of kidney stones, suddenly had increased right flank pain today, now is unbearable. has a urologist in [facility], was supposed to get a xray last week, but was feeeling good and didn't .. At its maximum, severity described as 10 / 10. When seen in the E.D., severity described as 10 / 10. Modifying factors- worsened by movement and walking. Not relieved by anything. It is described as "pain", sharp and stabbing and it is described as located in the right flank. The patient has had nausea and loss of appetite. Similar symptoms previously: Many times. Recent medical care: The patient was seen recently at another facility in a clinic. REVIEW OF SYSTEMS The patient has had difficulty with urination. The patient has had urinary frequency. No fever or chills. PAST HISTORY See nurses notes. Has had multiple episodes of severe urinary calculi. See old chart. Problems: Head Injury. Dental Caries. Abscess. Nephrolithiasis. Laceration. Tetanus Status. Last Tetanus. Renal Colic. Immunizations. Kidney stones . Medications: None. Allergies: None. SOCIAL HISTORY Smoker- current status unknown (cigarette). History of occasional drug use: marijuana. No alcohol use. FAMILY HISTORY Negative. ADDITIONAL NOTES The nursing notes have been reviewed with agreement regarding the chief complaint, HPI, ROS, PMH and patient medications and allergies. PHYSICAL EXAM Vital Signs: 09/21/2016 16:41 BP: 120/75. HR: 68. RR: 20. O2 saturation: 92%. Pain level now: 08/05. 09/21/2016 15:18 BP: 132/81. HR: 90. RR: 20. O2 saturation: 100%. Temp: 99.5 F. Pain level now: 8/10. Have been reviewed. Appearance: Alert. Oriented X3. Anxious. Appears to be in pain. Patient in moderate distress. Eyes: Pupils equal, round and reactive to light. ENT: Ears normal. Nose normal. Pharynx normal. Neck: Normal inspection. Neck supple. CVS: Normal heart rate and rhythm. Heart sounds normal. Respiratory: No respiratory distress. Breath sounds normal. Abdomen: Soft and nontender. Bowel sounds normal. No organomegaly. No mass. Femoral pulses equal. Back: Normal inspection. No CVA tenderness. Skin: Skin warm. Normal skin color. No rash. Slight diaphoresis. Neuro: Oriented X 3. LABS, X-RAYS, AND EKG Abdominal CT: No diverticulitis. Name: Sana Hannah : 1970 MR#: [id number] Ordering Provider: JOVANNA TREVINO Exam(s): CT ABDOMEN/PELVIS W/O CONTRAST Date of Exam: 09/21/2016 __ PROCEDURE: CT ABDOMEN/PELVIS W/O CONTRAST INDICATION: Right flank pain and hematuria. TECHNIQUE: Noncontrast axial images were obtained of the entire abdomen and pelvis with sagittal and coronal reformations. COMPARISON: CT abdomen/pelvis 09/09/2013. FINDINGS: ABDOMEN: There are three nonobstructing right renal calculi (one - 4.5 mm). No additional urinary calculi. No hydronephrosis. Lung base are clear. Heart size is normal. Liver, gallbladder, pancreas, spleen and adrenal glands are normal. Tortuous abdominal aorta. Mild descending colon diverticulosis. Stool throughout the large bowel. PELVIS: Moderate sigmoid diverticulosis. Appendix not visualized but no evidence of acute appendicitis. There is no pelvic mass, inflammatory changes or free fluid. Mild degenerative changes of the spine. IMPRESSION: 1. Three nonobstructing right renal calculi 2. Diverticulosis 3. Obstipation 4. Results discussed with Jovanna Trevino. All CT scans at this facility use dose modulation, iterative reconstruction, and/or weight-based dosing when appropriate to reduce radiation dose to as low as reasonably achievable. Electronically Final signed by:Ruperto Dailey MD 09/21/2016 4:19:55 PM Technologist: GONZALO. The study was independently viewed by me, interpreted by the radiologist and discussed with the radiologist. Laboratory Tests: UA-Culture if indicated: (TERESA: 09/21/2016 15:26) ( MsgRcvd 09/21/2016 16:04) Final results Test Result Flag Units (Reference) URINE COLOR YELLOW URINE APPEARANCE SL CLOUDY URINE GLUCOSE NEGATIVE (NEGATIVE) URINE BILIRUBIN NEGATIVE (NEGATIVE) URINE KETONE NEGATIVE (NEGATIVE) URINE SPECIFIC GRAVITY 1.020 (1.010-1.030) URINE PH 6.5 (5.0-8.0) URINE PROTEIN TRACE (NEGATIVE) URINE UROBILINOGEN 0.2 EU/dL (0.2-1.0) URINE NITRITE POSITIVE (NEGATIVE) URINE BLOOD 2+ (NEGATIVE) URINE LEUK ESTERASE POSITIVE (NEGATIVE) URINE RBC 5-10 rbc/hpf (0-1) URINE WBC 10-15 wbc/hpf (0-1) URINE EPITHELIAL CELLS 0-1 EPI/hpf (0-5) URINE BACTERIA MODERATE (2+ TO 3+) (NONE SEEN) URINE COMMENT CULTURE INDICATED URINE CULTURES ARE SET-UP BASED ON THE FOLLOWING CRITERIA:POSITIVE NITRITEPOSITIVE LEUKOCYTE ESTERASEGREATER THAN 10 WHITE BLOOD CELLSMODERATE (2+) OR GREATER BACTERIA CBC w Diff: (TERESA: 09/21/2016 15:26) ( MsgRcvd 09/21/2016 15:47) Final results Test Result Flag Units (Reference) WHITE BLOOD COUNT 10.3 K/uL (4.5-11.5) RED BLOOD COUNT 4.70 M/uL (4.50-5.90) HEMOGLOBIN 14.1 gm/dL (13.5-17.5) HEMATOCRIT 41.6 % (41.0-53.0) MEAN CELL VOLUME 89 fL (80-100) MEAN CORPUSCULAR HGB 30 pg (26-34) MEAN CORPUSCULAR HGB CONC 34 g/dL (31-37) RED CELL DISTRIBUTION WIDTH 14.0 % (11.6-14.8) PLATELET COUNT 222 K/uL (150-400) NEUTROPHIL % 84.5 H % (50-75) LYMPH % 4.4 L % (25-40) MONO % 10.8 % (3-14) EOSINOPHIL % 0.1 % (0-4) BASOPHIL % 0.2 % (0-2) CMP: (TERESA: 09/21/2016 15:26) ( MsgRcvd 09/21/2016 15:56) Final results Test Result Flag Units (Reference) GLUCOSE 127 H mg/dL (70-110) BUN 14 mg/dL (7-18) CREATININE 1.0 mg/dL (0.6-1.3) Estimated GFR >60 mL/min Estimated GFR- >60 mL/min Note: Persistent reduction over 3 months in eGFR<60 mL/min/1.73 m2 defines CKD. Patients with eGFR values>=60 mL/min/1.73 m2 may also have CKD if evidence ofpersistent proteinuria. Additional information may be foundat www.kidney.org. SODIUM 135 L mmol/L (136-145) POTASSIUM 3.4 L mmol/L (3.5-5.1) CHLORIDE 101 mmol/L (98-107) CARBON DIOXIDE 24 mmol/L (21-32) CALCIUM 8.4 L mg/dL (8.5-10.1) TOTAL PROTEIN 6.7 g/dL (6.4-8.2) ALBUMIN 3.3 g/dL (3.3-5.0) BILIRUBIN, TOTAL 0.5 mg/dL (0.0-1.0) ALKALINE PHOSPHATASE 86 U/L (46-116) AST (SGOT) 19 U/L (15-37) ALT (SGPT) 25 U/L (12-78) . PROGRESS AND PROCEDURES Course of Care: 15:40 09/21/2016 Site #1 started via IV in the left antecubital space with an 20g angiocath, with aseptic technique and good blood return; one attempt. Blood drawn: rainbow set. Labeled in the presence of the patient and sent to the lab. Saline lock flushed with 10 mL saline. --15:40 Sheriff Singh R.N. 15:40 09/21/2016 Started bag #1 1000 mL IV Fluids IV NS (Saline); at 1000 mL/hr over 1 hour(s) via site #1 via IV pump. Allergies verified and confirmed 5 rights. IV patency established site checked: no pain, redness, or swelling flushed thoroughly pre- and post-medication administration. --15:40 Sheriff Singh R.N. 15:41 09/21/2016 Dilaudid (HYDROmorphone HCl PF) IVP 1 mg given. via site #1. Allergies verified, confirmed 5 rights and sedative warning given to the patient. IV patency established. IV site checked: no pain, redness, or swelling. IV flushed thoroughly pre- and post-medication administration. IVP given by PA. --15:41 Sheriff Singh R.N. 15:49 09/21/2016 Zofran (Ondansetron HCl) IVP 4 mg given. via site #1. Allergies verified and confirmed 5 rights. IV patency established. IV site checked: no pain, redness, or swelling. IV flushed thoroughly pre- and post-medication administration. IVP given by RN. --15:49 Sheriff Singh R.N. 16:32 09/21/2016 Dilaudid (HYDROmorphone HCl PF) IVP 0.5 mg given. via site #1. Allergies verified, confirmed 5 rights and sedative warning given to the patient. IV patency established. IV site checked: no pain, redness, or swelling. IV flushed thoroughly pre- and post-medication administration. IVP given by RN. --16:33 Sheriff Singh R.N. 16:33 09/21/2016 Flomax (Tamsulosin HCl) PO 0.4 mg given. Allergies verified and confirmed 5 rights. --16:33 Sheriff Singh R.N. Patient is stable. Physical exam findings are improved. Symptoms much better. CLINICAL IMPRESSION Right renal colic in the right kidney with multiple calculi (3 non obstructing stones in the right kidney). No hydronephrosis. INSTRUCTIONS Rest. Do not work for two days until better. Drink plenty of fluids. Warnings: Further evaluation is necessary. It is very important to follow up with a physician. GENERAL WARNINGS: Return or contact your physician immediately if your condition worsens or changes unexpectedly, if not improving as expected, or if other problems arise. Prescription Medications: Zofran (orally disintegrating tablets) 4 mg: take 1 orally every 8 hours as needed for nausea. Dispense ten (10). No refill. Substitution is permissible. Oxycodone/APAP 5 mg/325 mg: take 1-2 tablets orally every 6 hours as needed for pain. Dispense twenty (20). No refill. Flomax 0.4 mg: take 1-2 orally every 24 hours. Take dose every day 30 minutes after the same meal. Dispense twenty (20). No refills. Substitution is permissible. Follow-up: Follow up with a urologist Dr. Greene Friday if not better. Call for an appointment. Reason for referral: 3 non obstructing stones in the right kidney. Understanding of the discharge instructions verbalized by patient. (Electronically signed by Jovanna Trevino PA-C 09/21/2016 23:48)
--- NOTE | 2016-09-21 16:31 | ED NURSING NOTES ---
Clinical Report - Nurses [facility] [place] [address] 09/21/2016 15:08 Patient: SANA HANNAH TRIAGE Triage time 15:18. Acuity: LEVEL 3. Chief Complaint: (Lower Back Pain). --15:21 Sheriff Singh R.N. 15:18 09/21/16. BP: 132/81. HR: 90. RR: 20. O2 saturation: 100%. Temp: 99.5 F. Pain level now: 12/05. --15:21 Sheriff Singh R.N. Weight: 88.4 kg stated. Height/Length: 71 inches Per Patient. BMI: 27.2. --15:20 Sheriff Singh R.N. Medications None. --15:19 Sheriff Singh R.N. Allergies None. --15:19 Sheriff Singh R.N. History Arrived by private vehicle. Historian: patient. This started last night. ( History stones). SURGERY HX: Lithotripsy. SOCIAL HX: Light tobacco smoker- less than 1/2 a pack per day. History of drug use: marijuana. No alcohol use. FALL RISK ASSESSMENT: Fall risk assessment completed. No fall risk identified. NUTRITIONAL RISK ASSESSMENT: The nutritional risk assessment revealed no deficiencies. FUNCTIONAL ASSESSMENT: Functional assessment: no impairments noted. LEARNING NEEDS ASSESSMENT: The learning needs assessment revealed no barriers. SKIN INTEGRITY ASSESSMENT: Skin integrity risk assessment completed. No skin integrity risk identified. --15:21 Sheriff Singh R.N. PROBLEMS: Head Injury. Dental Caries. Abscess. Nephrolithiasis. Laceration. Tetanus Status. Last Tetanus. Renal Colic. Immunizations. Kidney stones . --15:19 Sheriff Singh R.N. Interventions ID band on patient. --15:21 Sheriff Singh R.N. NURSING PROGRESS NOTES 15:40 09/21/2016 Site #1 started via IV in the left antecubital space with an 20g angiocath, with aseptic technique and good blood return; one attempt. Blood drawn: rainbow set. Labeled in the presence of the patient and sent to the lab. Saline lock flushed with 10 mL saline. --15:40 Sheriff Singh R.N. 15:40 09/21/2016 Started bag #1 1000 mL IV Fluids IV NS (Saline); at 1000 mL/hr over 1 hour(s) via site #1 via IV pump. Allergies verified and confirmed 5 rights. IV patency established site checked: no pain, redness, or swelling flushed thoroughly pre- and post-medication administration. --15:40 Sheriff Singh R.N. 15:41 09/21/2016 Dilaudid (HYDROmorphone HCl PF) IVP 1 mg given. via site #1. Allergies verified, confirmed 5 rights and sedative warning given to the patient. IV patency established. IV site checked: no pain, redness, or swelling. IV flushed thoroughly pre- and post-medication administration. IVP given by PA. --15:41 Sheriff Singh R.N. 15:49 09/21/2016 Zofran (Ondansetron HCl) IVP 4 mg given. via site #1. Allergies verified and confirmed 5 rights. IV patency established. IV site checked: no pain, redness, or swelling. IV flushed thoroughly pre- and post-medication administration. IVP given by RN. --15:49 Sheriff Singh R.N. 16:32 09/21/2016 Dilaudid (HYDROmorphone HCl PF) IVP 0.5 mg given. via site #1. Allergies verified, confirmed 5 rights and sedative warning given to the patient. IV patency established. IV site checked: no pain, redness, or swelling. IV flushed thoroughly pre- and post-medication administration. IVP given by RN. --16:33 Sheriff Singh R.N. 16:33 09/21/2016 Flomax (Tamsulosin HCl) PO 0.4 mg given. Allergies verified and confirmed 5 rights. --16:33 Sheriff Singh R.N. DISPOSITION / DISCHARGE Condition at departure: stable. No learning barriers present. Discharge instructions provided and reviewed with the patient. Reviewed medication(s) side effects, precautions, dosing and course information. Prescription(s) given to the patient. Work note given. Patient verbalized understanding. Written instructions provided in Romansh. The patient was discharged by the physician assistant oceanographer. He was discharged home and unaccompanied at time of discharge. He left the Emergency Department ambulatory and via private vehicle. Patient driving. --16:42 Sheriff Singh R.N. 16:41 09/21/16. BP: 120/75. HR: 68. RR: 20. O2 saturation: 92%. Pain level now: 08/05. --16:42 Sheriff Singh R.N. Locked/Released at 09/21/2016 16:42 by Sheriff Singh R.N.
--- NOTE | 2016-09-21 16:31 | ED ORDER SUMMARY ---
..... Patient: SANA HANNAH OrderSheet [facility] VisitID: [id number] [address] [place] [address] 46y, M Registration Date/Time: 09/21/2016 ORDER SHEET Weight: 88.4 kg (stated) Allergies: None GENERAL ORDERS: CBC w Diff Urgent (15:34 09/21/2016 ABlanchette PA-C) (Ack 15:37 IJurca ER Tech1) CMP Urgent (15:34 09/21/2016 ABlanchette PA-C) (Ack 15:37 IJurca ER Tech1) UA-Culture if indicated Urgent (15:34 09/21/2016 ABlanchette PA-C) (Ack 15:37 IJurca ER Tech1) CT Abd/Pel wo Cont (history of obstructing stones, acute pain starting early am) Urgent (15:41 09/21/2016 ABlanchette PA-C) (Ack 15:53 IJurca ER Tech1) (16:04 Calli) MEDICATION ORDERS: Flomax PO 0.4 mg (Do not crush or chew, NOW) (16:28 09/21/2016 ABlanchette PA-C) (16:33 SSambou R.N.) IV FLUIDS: Dilaudid IV 1 mg (HIGH ALERT MEDICATION, NOW) (15:34 09/21/2016 ABlanchette PA-C) (15:41 SSambou R.N.) IV NS : initial bolus none -, then 1000 mL/hr for X1 (NOW) (15:34 09/21/2016 ABlanchette PA-C) (15:40 SSambou R.N.) Zofran IV 4 mg (NOW) (15:42 09/21/2016 ABlanchette PA-C) (15:49 SSambou R.N.) Dilaudid IV 0.5 mg (HIGH ALERT MEDICATION, NOW) (16:28 09/21/2016 ABlanchette PA-C) (16:33 SSambou R.N.) ORDER SHEET NOTES: [Electronically signed by Sheriff Kelly Singh (16:42 09/21/2016)] [Electronically signed by Kymberly De León PA-C (23:48 09/21/2016)] [Electronically locked/signed by Sheriff Kelly Singh (16:42 09/21/2016)]
--- NOTE | 2016-09-21 23:48 | ED DISCHARGE INSTRUCTIONS ---
Patient: SANA HANNAH General Instructions [facility] VisitID: [id number] [address] [place] [address] 46y, M Registration Date/Time: 09/21/2016 Right renal colic in the right kidney with multiple calculi (3 non obstructing stones in the right kidney). No hydronephrosis. INSTRUCTIONS Rest. Do not work for two days until better. Drink plenty of fluids. Warnings: Further evaluation is necessary. It is very important to follow up with a physician. GENERAL WARNINGS: Return or contact your physician immediately if your condition worsens or changes unexpectedly, if not improving as expected, or if other problems arise. Prescription Medications: Zofran (orally disintegrating tablets) 4 mg: take 1 orally every 8 hours as needed for nausea. Dispense ten (10). No refill. Substitution is permissible. Oxycodone/APAP 5 mg/325 mg: take 1-2 tablets orally every 6 hours as needed for pain. Dispense twenty (20). No refill. Flomax 0.4 mg: take 1-2 orally every 24 hours. Take dose every day 30 minutes after the same meal. Dispense twenty (20). No refills. Substitution is permissible. Follow-up: Follow up with a urologist Dr. Greene Friday if not better. Call for an appointment. Reason for referral: 3 non obstructing stones in the right kidney. Understanding of the discharge instructions verbalized by patient. ADDITIONAL INFORMATION Kidney Stone (W/ Colic) The sharp cramping pain and nausea/vomiting that you have is due to a small stone which has formed in the kidney and is now passing down a narrow tube (ureter) on its way to your bladder. Once it reaches your bladder, the pain will stop. The stone may pass in your urine stream in one piece. [The size may be 1/16" to 1/4" (1-6mm)]. Or, the stone may also break up into rubi fragments which you may not even notice. Once you have had a kidney stone, you are at risk for developing another one in the future. Home Care: Drink plenty of fluids (at least 8 to 10 glasses of water a day). Most stones will pass on their own, but may take from a few hours to a few days. Sometimes the stone is too large to pass by itself and special methods will have to be used to remove the stone. Each time you urinate, do so in a jar. Pour the urine from the jar through the strainer and into the toilet. Continue doing this until 24 hours after your pain stops. By then, if there was a kidney stone, it should pass from your bladder. Some stones dissolve into sand-like particles and pass right through the strainer. In that case, you wont ever see a stone. Save any stone that you find in the strainer and bring it to your doctor for analysis. It may be possible to prevent certain types of stones from forming. Therefore, it is important to know what kind of stone you have. Try to stay as active as possible since this will help the stone pass. Do not stay in bed unless your pain prevents you from getting up. You may notice a red, pink or brown color to your urine. This is normal while passing a kidney stone. Follow Up with your doctor or return to this facility if the pain lasts more than 48 hours. Get Prompt Medical Attention if any of the following occur: Pain that is not controlled by the medicine given Repeated vomiting or unable to keep down fluids Weakness, dizziness or fainting Fever of 100.4F (38C) or higher, or as directed by your healthcare provider Passage of solid red or brown urine (can't see through it) or urine with lots of blood clots Unable to pass urine for 8 hours and increasing bladder pressure You have been given the following additional information: Kidney Stone W/ Colic Rest. Do not work for two days until better. (Electronically signed by Kymberly De León PA-C 09/21/2016 23:48)
--- NOTE | 2016-09-21 23:48 | ED MED RECONCILIATION SUMMARY ---
Patient: SANA HANNAH Medication Reconciliation Report [facility] VisitID: [id number] [address] [place] [address] 46y, M Registration Date/Time: 09/21/2016 Weight: 88.4 kg Height/Length: 71 in. BMI: 27.2 ALLERGIES: None The patient's Home Medications are listed below: NONE. The source(s) of the original Home Medication information: Not obtained. The following Medications were given to the patient in the Emergency Department: IV NS IV Fluids bolus 0, then 1000 mL/hr, administered: 09/21/2016 3:40:00 PM Dilaudid [IVP] IVP 1 mg, administered: 09/21/2016 3:41:00 PM Zofran [IVP] IVP 4 mg, administered: 09/21/2016 3:49:00 PM Dilaudid [IVP] IVP 0.5 mg, administered: 09/21/2016 4:32:00 PM Flomax [PO] PO 0.4 mg, administered: 09/21/2016 4:33:00 PM The following Medications were prescribed to the patient: Zofran (orally disintegrating tablets) 4 mg: take 1 orally every 8 hours as needed for nausea. Dispense ten (10). No refill. Substitution is permissible. -- Kymberly De León PA-C Oxycodone/APAP 5 mg/325 mg: take 1-2 tablets orally every 6 hours as needed for pain. Dispense twenty (20). No refill. -- Kymberly De León PA-C Flomax 0.4 mg: take 1-2 orally every 24 hours. Take dose every day 30 minutes after the same meal. Dispense twenty (20). No refills. Substitution is permissible. -- Kymberly De León PA-C
--- NOTE | 2016-09-21 23:48 | ED MED RECONCILIATION SUMMARY ---
Patient: SANA HANNAH Medication Reconciliation Report [facility] VisitID: [id number] [address] [place] [address] 46y, M Registration Date/Time: 09/21/2016 Weight: 88.4 kg Height/Length: 71 in. BMI: 27.2 ALLERGIES: None The patient's Home Medications are listed below: NONE. The source(s) of the original Home Medication information: Not obtained. The following Medications were given to the patient in the Emergency Department: IV NS IV Fluids bolus 0, then 1000 mL/hr, administered: 09/21/2016 3:40:00 PM Dilaudid [IVP] IVP 1 mg, administered: 09/21/2016 3:41:00 PM Zofran [IVP] IVP 4 mg, administered: 09/21/2016 3:49:00 PM Dilaudid [IVP] IVP 0.5 mg, administered: 09/21/2016 4:32:00 PM Flomax [PO] PO 0.4 mg, administered: 09/21/2016 4:33:00 PM The following Medications were prescribed to the patient: Zofran (orally disintegrating tablets) 4 mg: take 1 orally every 8 hours as needed for nausea. Dispense ten (10). No refill. Substitution is permissible. -- Kymberly De León PA-C Oxycodone/APAP 5 mg/325 mg: take 1-2 tablets orally every 6 hours as needed for pain. Dispense twenty (20). No refill. -- Kymberly De León PA-C Flomax 0.4 mg: take 1-2 orally every 24 hours. Take dose every day 30 minutes after the same meal. Dispense twenty (20). No refills. Substitution is permissible. -- Kymberly De León PA-C
--- NOTE | 2016-09-21 23:48 | ED MAR SUMMARY ---
..... Medication Administration Record [facility] [address] [place] [address] Patient: SANA HANNAH Visit ID: [id number] 46y, M Weight: 88.4 kg Height/Length: 71 in BMI: 27.2 ALLERGIES: None Start 15:40 09/21/2016 Sheriff Singh R.N. Medication Administered: IV NS (SALINE), Dose: IV Fluids over 1 hour(s), Rate: 1000 mL/hr, Dispensed: 1000 mL bag, Site: #1 left AC. Medication Ordered: IV NS : initial bolus none -, then 1000 mL/hr for X1 (NOW). Given 15:41 09/21/2016 Sheriff Singh R.N. Medication Administered: DILAUDID [IVP] (HYDROMORPHONE HCL PF), Dose: 1 mg IVP, Site: #1 left AC. Medication Ordered: Dilaudid IV 1 mg (HIGH ALERT MEDICATION, NOW). Given 15:49 09/21/2016 Sheriff Singh R.N. Medication Administered: ZOFRAN [IVP] (ONDANSETRON HCL), Dose: 4 mg IVP, Site: #1 left AC. Medication Ordered: Zofran IV 4 mg (NOW). Given 16:32 09/21/2016 Sheriff Singh R.N. Medication Administered: DILAUDID [IVP] (HYDROMORPHONE HCL PF), Dose: 0.5 mg IVP, Site: #1 left AC. Medication Ordered: Dilaudid IV 0.5 mg (HIGH ALERT MEDICATION, NOW). Given 16:33 09/21/2016 Sheriff Singh R.N. Medication Administered: FLOMAX [PO] (TAMSULOSIN HCL), Dose: 0.4 mg PO. Medication Ordered: Flomax PO 0.4 mg (Do not crush or chew, NOW).
--- NOTE | 2016-09-21 23:48 | ED MAR SUMMARY ---
..... Medication Administration Record [facility] [address] [place] [address] Patient: SANA HANNAH Visit ID: [id number] 46y, M Weight: 88.4 kg Height/Length: 71 in BMI: 27.2 ALLERGIES: None Start 15:40 09/21/2016 Sheriff Singh R.N. Medication Administered: IV NS (SALINE), Dose: IV Fluids over 1 hour(s), Rate: 1000 mL/hr, Dispensed: 1000 mL bag, Site: #1 left AC. Medication Ordered: IV NS : initial bolus none -, then 1000 mL/hr for X1 (NOW). Given 15:41 09/21/2016 Sheriff Singh R.N. Medication Administered: DILAUDID [IVP] (HYDROMORPHONE HCL PF), Dose: 1 mg IVP, Site: #1 left AC. Medication Ordered: Dilaudid IV 1 mg (HIGH ALERT MEDICATION, NOW). Given 15:49 09/21/2016 Sheriff Singh R.N. Medication Administered: ZOFRAN [IVP] (ONDANSETRON HCL), Dose: 4 mg IVP, Site: #1 left AC. Medication Ordered: Zofran IV 4 mg (NOW). Given 16:32 09/21/2016 Sheriff Singh R.N. Medication Administered: DILAUDID [IVP] (HYDROMORPHONE HCL PF), Dose: 0.5 mg IVP, Site: #1 left AC. Medication Ordered: Dilaudid IV 0.5 mg (HIGH ALERT MEDICATION, NOW). Given 16:33 09/21/2016 Sheriff Singh R.N. Medication Administered: FLOMAX [PO] (TAMSULOSIN HCL), Dose: 0.4 mg PO. Medication Ordered: Flomax PO 0.4 mg (Do not crush or chew, NOW).
== END 2016-09-21 16:40 | disposition home or self-care (01) ==
LOC: ED SRH 15:08
DX: N20.0 Calculus of kidney (principal); N39.0 Urinary tract infection, site not specified; F17.210 Nicotine dependence, cigarettes, uncomplicated
CPT/HCPCS: 90004; 90100; 90148; 90469; 95059

== ENCOUNTER 2016-09-22 23:49 | Emergency (ER) | payer OTHER ==
--- NOTE | 2016-09-23 02:03 | ED NURSING NOTES ---
Clinical Report - Nurses [facility] [address] [place] [address] 09/22/2016 23:50 [id number] Triage time 00:00. Acuity: LEVEL 3. Chief Complaint: FEVER and SWEATS. Alert. ALONSO COMA SCORE: Alonso Coma Scale: 15- eyes open spontaneously (4); best verbal response- oriented x 4 (5); best motor response- obeys commands (6). --00:04 Rajesh Pichardo R.N. 23:59 09/22/16. BP: 155/93 taken while lying. HR: 88. RR: 12 (regular and deep). O2 saturation: 100% on room air. Temp: 98.6 F (oral). Pain level now: 12/05. --00:04 Rajesh Pichardo R.N. Weight: 88.4 kg stated. Height/Length: 71 inches Per Patient. BMI: 27.2. --23:59 Rajesh Pichardo R.N. Medications None. --01:09 Nicolas Mcgee R.N. Allergies None. --01:09 Nicolas Mcgee R.N. History Arrived by private vehicle. Historian: patient. Accompanied by family. This started yesterday. Onset. (pt states that he was seen in the ER yesterday, and diagnosed with infected kidney stones. he states that he started the antibiotic this morning but has had fevers and "I feel worse than I did yesterday."). SOCIAL HX: Heavy tobacco smoker (cigarette)- less than 1 pack per day. History of heavy drug use: marijuana. No alcohol use. FALL RISK ASSESSMENT: Fall risk assessment completed. No fall risk identified. FUNCTIONAL ASSESSMENT: Functional assessment: no impairments noted. LEARNING NEEDS ASSESSMENT: The learning needs assessment revealed no barriers. --00:04 Rajesh Pichardo R.N. SOCIAL HX: ( patient denies SI/HI, states that he feels safe at home). ABUSE ASSESSMENT: No report of abuse. --00:06 Rajesh Pichardo R.N. PROBLEMS: Dental Caries. Nephrolithiasis. --01:09 Nicolas Mcgee R.N. ADDITIONAL SURGERIES: Lithotripsy. --01:09 Nicolas Mcgee R.N. Interventions ID band on patient. To room. --00:04 Rajesh Pichardo R.N. PHYSICAL ASSESSMENT Ambulatory to room. GENERAL / NEURO / PSYCH: Alert. Oriented X 4. Appears in pain and anxious. HEENT: Mucous membranes are pink. RESPIRATORY: No respiratory distress. Chest nontender. CVS: Capillary refill less than 2 seconds. GI / : ( right lower back pain. pt states "my right kidney"). Abdomen soft. SKIN: Skin is warm. Skin is moderately diaphoretic. --00:05 Rajesh Pichardo R.N. NURSING PROGRESS NOTES Pulse oximeter and NIBP monitor placed on patient. Patient gowned. Reassurance given. Two patient identifiers checked. Call light placed in reach. Side rails up x 1. Bed placed in lowest position. Brakes of bed on. Patient ready for evaluation- chart flagged. Patient waiting for evaluation. --00:05 Rajesh Pichardo R.N. 00:12 09/23/2016 Site #1 started via IV in the left forearm with an 20g angiocath, with aseptic technique and good blood return; one attempt. Blood drawn: rainbow set. Labeled in the presence of the patient and sent to the lab. Saline lock flushed with 10 mL saline. --00:17 Rajesh Pichardo R.N. 00:16 09/23/2016 Started bag #1 1000 mL IV Fluids IV NS (Saline); at 1000 mL/hr over 1 hour(s) via site #1. Allergies verified and confirmed 5 rights. IV patency established. IV site checked: no pain, redness, or swelling. IV flushed thoroughly pre- and post-medication administration. Completed per protocol (started by Susan Jose RN). --00:17 Rajesh Pichardo R.N. 00:24 09/23/2016 Morphine IV 4 mg (HIGH ALERT MEDICATION, NOW) was refused by patient because of nausea and concern over the side effects. Rajesh Pichardo --00:37 Rajesh Pichardo R.N. 00:29 09/23/2016 Started 2 gm of Ceftriaxone IVPB in bag #1 50 mL; at 120 mL/hr over 20 minute(s) via site #1 via IV pump. Allergies verified and confirmed 5 rights. IV patency established. IV site checked: no pain, redness, or swelling. IV flushed thoroughly pre- and post-medication administration. --00:36 Rajesh Pichardo R.N. 00:31 09/23/2016 Toradol IVP 30 mg given over 2 minute(s) via site #1. Allergies verified and confirmed 5 rights. IV patency established. IV site checked: no pain, redness, or swelling. IV flushed thoroughly pre- and post-medication administration. IVP given by RN. --00:36 Rajesh Pichardo R.N. 00:35 09/23/2016 Dilaudid (HYDROmorphone HCl PF) IVP 1 mg given over 2 minute(s) via site #1. Allergies verified, confirmed 5 rights and sedative warning given to the patient. IV patency established. IV site checked: no pain, redness, or swelling. IV flushed thoroughly pre- and post-medication administration. IVP given by RN. --00:37 Rajesh Pichardo R.N. ( patient attempted to give a urine sample, was not able to urinate at this time--urinal at bedside and instructed him to let nursing staff know when he provides a sample.). --00:43 Rajesh Pichardo R.N. 00:51 09/23/2016 Ceftriaxone IVPB Discontinued: completed. Total amount infused: 50 mL. IV patency established. IV site checked: no pain, redness, or swelling. IV flushed thoroughly. --00:51 Rajesh Pichardo R.N. 01:09 09/23/2016 Tylenol (Acetaminophen) PO 650 mg given. Allergies verified and confirmed 5 rights. --01:12 Nicolas Mcgee R.N. 01:10 09/23/2016 Zofran (Ondansetron HCl) IVP 4 mg given over 2 minute(s) via site #1. Allergies verified and confirmed 5 rights. IV patency established. IV site checked: no pain, redness, or swelling. IV flushed thoroughly pre- and post-medication administration. --01:12 Quivey, Nicolas, R.N. DISPOSITION / DISCHARGE 02:15 09/23/16. BP: 123/78. HR: 82. RR: 15. O2 saturation: 98% on room air. Temp: deferred. Chowdary-Harman pain scale: 06/07. --02:16 Cara Teran R.N. 01:17 09/23/2016 IV Fluids IV NS Discontinued: bag #1 completed. Total amount infused: 1000 mL. IV patency established. IV site checked: no pain, redness, or swelling. IV flushed thoroughly. --02:17 Cara Teran R.N. 02:15 09/23/2016 Site #1 removed upon discharge. Catheter intact. Manual pressure and bandage applied. --02:16 Cara Teran R.N. ( pt given phone to call for a ride home.). --02:17 Cara Teran R.N. No learning barriers present. Discharge instructions provided and reviewed with the patient. Patient verbalized understanding. Written instructions provided in Portuguese. The patient was discharged home and accompanied by music engraver. He left the Emergency Department ambulatory and via private vehicle. Embroidery Cutter driving. --02:52 Cara Teran R.N. Locked/Released at 09/23/2016 3:26 by Rajesh Pichardo R.N.
--- NOTE | 2016-09-23 02:03 | ED ORDER SUMMARY ---
..... Patient: SANA HANNAH OrderSheet [facility] VisitID: [id number] [address] [place] [address] 46y, M Registration Date/Time: 09/22/2016 ORDER SHEET Weight: 88.4 kg (stated) Allergies: None GENERAL ORDERS: CBC w Diff Urgent (00:09/23/2016 Khang Marquez) (Ack 0:15 [facility] Provider Relations Specialist) (0:16 DDavis R.N.) CMP Urgent (00:09/23/2016 Khang Marquez) (Ack 0:15 [facility] Provider Relations Specialist) (0:16 DDavis R.N.) UA-Culture if indicated Urgent (00:09/23/2016 Khang Marquez) (Ack 0:15 [facility] Provider Relations Specialist) (1:57 DDavis R.N.) Lipase Urgent (00:09/23/2016 Khang Marquez) (Ack 0:15 [facility] Provider Relations Specialist) (0:16 DDavis R.N.) Pulse oximeter (00:09/23/2016 Khang Marquez) (0:16 DDavis R.N.) MEDICATION ORDERS: Tylenol PO 650 mg (NOW) (01:04 09/23/2016 Khang Marquez) (Ack 1:07 JQuivey R.N.) (1:12 JQuivey R.N.) IV FLUIDS: IV NS : initial bolus 1000 mL (1000 mL/hr), then none - for X1 (NOW) (00:09/23/2016 Khang Marquez) (0:17 DDavis R.N.) Ceftriaxone IV 2 gm/50mL (NOW) (00:09/23/2016 Khang Marquez) (0:36 DDavis R.N.) Toradol IV 30 mg (NOW) (00:14 09/23/2016 Khang Marquez) (0:36 DDavis R.N.) Morphine IV 4 mg (HIGH ALERT MEDICATION, NOW) (00:18 09/23/2016 Khang Marquez) (Cancelled: Duplicate Order0:28 Khang Marquez) Dilaudid IV 1 mg (HIGH ALERT MEDICATION, NOW) (00:28 09/23/2016 Khang Marquez) (0:37 Yun R.NFaith) Zofran IV 4 mg (NOW) (01:05 09/23/2016 Khang Marquez) (Ack 1:07 JQuivey R.N.) (1:12 JQuivey R.N.) ORDER SHEET NOTES: [Electronically signed by Rajesh Pichardo R.N. (03:09/23/2016)] [Electronically signed by Matt Carpio Dr. (08:49 09/24/2016)] [Electronically locked/signed by Rajesh Pichardo R.N. (03:09/23/2016)]
--- NOTE | 2016-09-23 02:03 | ED ORDER SUMMARY ---
..... Patient: SANA HANNAH OrderSheet [facility] VisitID: [id number] [address] [place] [address] 46y, M Registration Date/Time: 09/22/2016 ORDER SHEET Weight: 88.4 kg (stated) Allergies: None GENERAL ORDERS: CBC w Diff Urgent (00:09/23/2016 Khang Marquez) (Ack 0:15 [facility] Claims Attorney) (0:16 DDavis R.N.) CMP Urgent (00:09/23/2016 Khang Marquez) (Ack 0:15 [facility] Claims Attorney) (0:16 DDavis R.N.) UA-Culture if indicated Urgent (00:09/23/2016 Khang Marquez) (Ack 0:15 [facility] Claims Attorney) (1:57 DDavis R.N.) Lipase Urgent (00:09/23/2016 Khang Marquez) (Ack 0:15 [facility] Claims Attorney) (0:16 DDavis R.N.) Pulse oximeter (00:09/23/2016 Khang Marquez) (0:16 DDavis R.N.) MEDICATION ORDERS: Tylenol PO 650 mg (NOW) (01:04 09/23/2016 Khang Marquez) (Ack 1:07 JQuivey R.N.) (1:12 JQuivey R.N.) IV FLUIDS: IV NS : initial bolus 1000 mL (1000 mL/hr), then none - for X1 (NOW) (00:09/23/2016 Khang Marquez) (0:17 DDavis R.N.) Ceftriaxone IV 2 gm/50mL (NOW) (00:09/23/2016 Khang Marquez) (0:36 DDavis R.N.) Toradol IV 30 mg (NOW) (00:14 09/23/2016 Khang Marquez) (0:36 DDavis R.N.) Morphine IV 4 mg (HIGH ALERT MEDICATION, NOW) (00:18 09/23/2016 Khang Marquez) (Cancelled: Duplicate Order0:28 Khang Marquez) Dilaudid IV 1 mg (HIGH ALERT MEDICATION, NOW) (00:28 09/23/2016 Khang Marquez) (0:37 Yun R.NFaith) Zofran IV 4 mg (NOW) (01:05 09/23/2016 Khang Marquez) (Ack 1:07 JQuivey R.N.) (1:12 JQuivey R.N.) ORDER SHEET NOTES: [Electronically signed by Rajesh Pichardo R.N. (03:09/23/2016)] [Electronically signed by Matt Carpio Dr. (08:49 09/24/2016)] [Electronically locked/signed by Rajesh Pichardo R.N. (03:09/23/2016)]
--- NOTE | 2016-09-23 02:03 | ED CLINICAL REPORT ---
Clinical Report - Physicians/Mid Levels [facility] [address] [place] [address] 09/22/2016 23:50 [id number] Time Seen: 0005. Arrived- By private vehicle. Historian- patient. HISTORY OF PRESENT ILLNESS Chief Complaint: FEVER and "NOT FEELING WELL". This started yesterday and is still present and worsening. Fever was abrupt in onset and has been persistent but not measured. It is not gone now. The patient has had fatigue. Additional history - No known contact with a sick individual. Has not recently been ill. No recent hospitalization. No new medication recently administered. No recent travel. No known exposure to an animal. recent visit for kidney stones. Similar symptoms previously: None. Recent medical care: The patient was seen recently in the emergency department. REVIEW OF SYSTEMS No black stools or headache. All systems otherwise negative, except as recorded above. PAST HISTORY See nurses notes. Medications: None. Allergies: None. SOCIAL HISTORY Smoker- current status unknown. No alcohol use or drug use. No recent travel. Is a local resident. ADDITIONAL NOTES The nursing notes have been reviewed. PHYSICAL EXAM Vital Signs: 09/22/2016 23:59 BP: 155/93. HR: 88. RR: 12. O2 saturation: 100%. Temp: 98.6 F. Pain level now: 8/10. Oxygen saturation normal. Appearance: Alert. No acute distress. (non-toxic). Eyes: Pupils equal, round and reactive to light. Eyes normal inspection. ENT: Ears normal. Nose normal. Pharynx normal. Uvula midline. Neck: Normal inspection. Neck supple. CVS: Normal heart rate and rhythm. Heart sounds normal. Pulses normal. Respiratory: No respiratory distress. Breath sounds normal. Chest nontender. No rales, rhonchi or wheezes. Abdomen: Soft and nontender. Bowel sounds normal. Skin: Skin warm and dry. Normal skin color. No rash. Normal skin turgor. Extremities: Extremities exhibit normal ROM. Extremities nontender. Neuro: Oriented X 3. No motor deficit. No sensory deficit. LABS, X-RAYS, AND EKG Laboratory Tests: CBC w Diff: (TERESA: 09/23/2016 00:07) ( MsgRcvd 09/23/2016 00:20) Final results Test Result Flag Units (Reference) WHITE BLOOD COUNT 10.2 K/uL (4.5-11.5) RED BLOOD COUNT 4.69 M/uL (4.50-5.90) HEMOGLOBIN 14.1 gm/dL (13.5-17.5) HEMATOCRIT 41.6 % (41.0-53.0) MEAN CELL VOLUME 89 fL (80-100) MEAN CORPUSCULAR HGB 30 pg (26-34) MEAN CORPUSCULAR HGB CONC 34 g/dL (31-37) RED CELL DISTRIBUTION WIDTH 13.8 % (11.6-14.8) PLATELET COUNT 210 K/uL (150-400) NEUTROPHIL % 82.6 H % (50-75) LYMPH % 7.3 L % (25-40) MONO % 9.3 % (3-14) EOSINOPHIL % 0.7 % (0-4) BASOPHIL % 0.1 % (0-2) CMP: (TERESA: 09/23/2016 00:07) ( MsgRcvd 09/23/2016 00:31) Final results Test Result Flag Units (Reference) GLUCOSE 142 H mg/dL (70-110) BUN 12 mg/dL (7-18) CREATININE 1.0 mg/dL (0.6-1.3) Estimated GFR >60 mL/min Estimated GFR- >60 mL/min Note: Persistent reduction over 3 months in eGFR<60 mL/min/1.73 m2 defines CKD. Patients with eGFR values>=60 mL/min/1.73 m2 may also have CKD if evidence ofpersistent proteinuria. Additional information may be foundat www.kidney.org. SODIUM 136 mmol/L (136-145) POTASSIUM 3.4 L mmol/L (3.5-5.1) CHLORIDE 101 mmol/L (98-107) CARBON DIOXIDE 24 mmol/L (21-32) CALCIUM 8.4 L mg/dL (8.5-10.1) TOTAL PROTEIN 6.7 g/dL (6.4-8.2) ALBUMIN 3.1 L g/dL (3.3-5.0) BILIRUBIN, TOTAL 0.5 mg/dL (0.0-1.0) ALKALINE PHOSPHATASE 87 U/L (46-116) AST (SGOT) 16 U/L (15-37) ALT (SGPT) 23 U/L (12-78) LIPASE 136 U/L (73-393) . PROGRESS AND PROCEDURES Course of Care: PROCEDURE: CT ABDOMEN/PELVIS W/O CONTRAST INDICATION: Right flank pain and hematuria. TECHNIQUE: Noncontrast axial images were obtained of the entire abdomen and pelvis with sagittal and coronal reformations. COMPARISON: CT abdomen/pelvis 09/09/2013. FINDINGS: ABDOMEN: There are three nonobstructing right renal calculi (one - 4.5 mm). No additional urinary calculi. No hydronephrosis. Lung base are clear. Heart size is normal. Liver, gallbladder, pancreas, spleen and adrenal glands are normal. Tortuous abdominal aorta. Mild descending colon diverticulosis. Stool throughout the large bowel. PELVIS: Moderate sigmoid diverticulosis. Appendix not visualized but no evidence of acute appendicitis. There is no pelvic mass, inflammatory changes or free fluid. Mild degenerative changes of the spine. IMPRESSION: 1. Three nonobstructing right renal calculi 2. Diverticulosis 3. Obstipation the patient is a pleasant 46-year-old male presenting for evaluation of right-sided flank pain. On examination, patient with likely nephrolithiasis. Patient also could have pyelonephritis. Patient will be evaluated with laboratory studies including urinalysis and Blood work. Patient with recent CT scan yesterday. Symptoms are essentially unchanged except for reported fever. Do not fill repeat CT scan would manager of change and would only expose patient to increase radiation and increase his risk for developing malignancies later on in the future. Patient's CT scan was significant for the findings above. I reviewed them and the chances of the kidney stone passing spontaneously is Good. Patient is agreeable to the treatment plan the patient's workup was remarkable for the findings above. Patient with urinalysis that is positive for urinary tract infection. A dose of antibiotics would provided here in the emergency department. Patient was then reevaluated after the antibiotics. Patient is significant improvement with symptoms while here in the emergency department. Pain has been controlled. Because the patient's improved symptoms as well as negative laboratory studies for any other more sinister etiologies for his pain, feel the patient is stable outpatient candidate. I discussion with the patient in regards to his work. The emergency department including diagnosis, home care, follow-up, and return precautions. All questions have been answered. The patient expressed understanding of these instructions and was agreeable to them. Disposition: Discharged. Condition: good. CLINICAL IMPRESSION 09/22/2016 23:59 BP: 155/93. HR: 88. RR: 12. O2 saturation: 100%. Temp: 98.6 F. Pain level now: 8/10. Moderate nausea. No vomiting. Hypertensive. Oxygen saturation normal. Acute pyelonephritis Essential hypertension. INSTRUCTIONS Warnings: GENERAL WARNINGS: Return or contact your physician immediately if your condition worsens or changes unexpectedly, if not improving as expected, or if other problems arise. Specifically return if pain, vomiting, bleeding, breathing difficulty or fever. Your Current Medications: CONTINUE TAKING THE FOLLOWING MEDICATIONS: None*. Follow-up: Return to the emergency department as needed. Follow up with your doctor in two days. Reason for referral: recheck today's concerns. Summary of care provided to patient via paper. Screening today revealed the patient's blood pressure to be in the hypertensive range. The patient should follow up with a primary care provider for blood pressure management. Understanding of the discharge instructions verbalized by patient. Follow-up with: [facility], , , [address], [facility], [address] Follow up. Reason for referral: contact if you do not have a primary care provider (PCP). Summary of care provided to patient via paper. (Electronically signed by Matt Carpio Dr. 09/24/2016 8:49)
--- NOTE | 2016-09-24 08:50 | ED MED RECONCILIATION SUMMARY ---
Patient: SANA HANNAH Medication Reconciliation Report [facility] VisitID: [id number] [address] [place] [address] 46y, M Registration Date/Time: 09/22/2016 Weight: 88.4 kg Height/Length: 71 in. BMI: 27.2 ALLERGIES: None The patient's Home Medications are listed below: NONE. The source(s) of the original Home Medication information: Not obtained. The following Medications were given to the patient in the Emergency Department: IV NS IV Fluids bolus 0, then 1000 mL/hr, administered: 09/23/2016 12:16:00 AM Ceftriaxone [IVPB] IVPB bolus 0, then 2 gm 120 mL/hr, administered: 09/23/2016 12:29:00 AM Toradol [IVP] IVP 30 mg, administered: 09/23/2016 12:31:00 AM Dilaudid [IVP] IVP 1 mg, administered: 09/23/2016 12:35:00 AM Tylenol [PO] PO 650 mg, administered: 09/23/2016 1:09:00 AM Zofran [IVP] IVP 4 mg, administered: 09/23/2016 1:10:00 AM The following Medications were prescribed to the patient: None.
--- NOTE | 2016-09-24 08:50 | ED MAR SUMMARY ---
..... Medication Administration Record [facility] [address] [place] [address] Patient: SANA HANNAH Visit ID: [id number] 46y, M Weight: 88.4 kg Height/Length: 71 in BMI: 27.2 ALLERGIES: None Start 00:16 09/23/2016 Rajesh Pichardo R.N., Stop 01:17 09/23/2016 Cara Teran R.N. Medication Administered: IV NS (SALINE), Dose: IV Fluids over 1 hour(s), Rate: 1000 mL/hr, Dispensed: 1000 mL bag, Site: #1 left forearm. Medication Ordered: IV NS : initial bolus 1000 mL (1000 mL/hr), then none - for X1 (NOW). Start 00:29 09/23/2016 Rajesh Pichardo R.N., Stop 00:51 09/23/2016 Rajesh Pichardo R.N. Medication Administered: CEFTRIAXONE [IVPB], Dose: 2 gm IVPB over 20 minute(s), Rate: 120 mL/hr, Dispensed: 50 mL bag, Site: #1 left forearm. Medication Ordered: Ceftriaxone IV 2 gm/50mL (NOW). Given 00:31 09/23/2016 Rajesh Pichardo R.N. Medication Administered: TORADOL [IVP], Dose: 30 mg IVP over 2 minute(s), Site: #1 left forearm. Medication Ordered: Toradol IV 30 mg (NOW). Given 00:35 09/23/2016 Rajesh Pichardo R.N. Medication Administered: DILAUDID [IVP] (HYDROMORPHONE HCL PF), Dose: 1 mg IVP over 2 minute(s), Site: #1 left forearm. Medication Ordered: Dilaudid IV 1 mg (HIGH ALERT MEDICATION, NOW). Given 01:09 09/23/2016 Nicolas Mcgee R.N. Medication Administered: TYLENOL [PO] (ACETAMINOPHEN), Dose: 650 mg PO. Medication Ordered: Tylenol PO 650 mg (NOW). Given 01:10 09/23/2016 Nicolas Mcgee R.N. Medication Administered: ZOFRAN [IVP] (ONDANSETRON HCL), Dose: 4 mg IVP over 2 minute(s), Site: #1 left forearm. Medication Ordered: Zofran IV 4 mg (NOW).
--- NOTE | 2016-09-24 08:50 | ED DISCHARGE INSTRUCTIONS ---
Patient: SANA HANNAH General Instructions [facility] VisitID: [id number] [address] [place] [address] 46y, M Registration Date/Time: 09/22/2016 09/22/2016 23:59 BP: 155/93. HR: 88. RR: 12. O2 saturation: 100%. Temp: 98.6 F. Pain level now: 8/10. Moderate nausea. No vomiting. Hypertensive. Oxygen saturation normal. Acute pyelonephritis Essential hypertension. INSTRUCTIONS Warnings: GENERAL WARNINGS: Return or contact your physician immediately if your condition worsens or changes unexpectedly, if not improving as expected, or if other problems arise. Specifically return if pain, vomiting, bleeding, breathing difficulty or fever. Your Current Medications: CONTINUE TAKING THE FOLLOWING MEDICATIONS: None*. Follow-up: Return to the emergency department as needed. Follow up with your doctor in two days. Reason for referral: recheck today's concerns. Summary of care provided to patient via paper. Screening today revealed the patient's blood pressure to be in the hypertensive range. The patient should follow up with a primary care provider for blood pressure management. Understanding of the discharge instructions verbalized by patient. Follow-up with: [facility], , , [address], [place], [address] Follow up. Reason for referral: contact if you do not have a primary care provider (PCP). Summary of care provided to patient via paper. ADDITIONAL INFORMATION High Blood Pressure -- To Be Confirmed [No Tx] Your blood pressure was higher today than normal. Sometimes anxiety or pain can cause a temporary rise in blood pressure that later returns to normal. If your blood pressure is high on one measurement, this does not mean that you have hypertension (a chronic illness). However, you must have your blood pressure measured again within the next few days to find out if its still high. A normal blood pressure is 120/80 or less. The first (top) number is the "systolic" pressure. The second (bottom) number is the "diastolic" pressure. Hypertension exists when either the top number is 140 or higher, OR the bottom number is 90 or higher on repeated measurements. Blood pressure in the range of 120-140 (systolic) or 80-89 (diastolic) is considered "pre-hypertension". This means your are at risk for getting hypertension. You should have regular blood pressure checks to be sure your blood pressure is not rising. Home Care: Measure your blood pressure on 3 different days and write down the results. This can be done at your doctor's office or this facility. Some pharmacies and grocery stores offer automated blood pressure machines for your use. Follow Up: If your blood pressure is "high" (over 120/80) on 2 out of 3 days, you will need to follow up with your doctor for further evaluation and treatment. DO NOT PUT THIS OFF! Untreated high blood pressure increases the risk for heart attack, also known as acute myocardial infarction, or AMI, and stroke. It is a treatable condition. Get Prompt Medical Attention if any of the following occur: Chest pain or shortness of breath Severe headache Throbbing or rushing sound in the ears Nosebleed Sudden severe abdominal pain Extreme drowsiness, confusion or fainting Dizziness or vertigo (dizziness with spinning sensation) Weakness of an arm or leg or one side of the face Difficulty with speech or vision Kidney Infection [Adult, Male] An infection of the kidney is also called "pyelonephritis". It usually starts as a bladder infection ("cystitis") which spreads to the kidneys. Pyelonephritis is more serious than a bladder infection. It can cause severe illness if not treated properly. The usual symptoms include an aching pain in the back, side or lower abdomen. Other symptoms may include fever, chills, nausea, vomiting, an urge to urinate and a burning sensation when passing urine. Home Care: 1) Stay home from work or school. Rest in bed until your fever breaks and you are feeling better. 2) Drink lots of fluid (at least 6-8 glasses a day,unless you must restrict fluids for other medical reasons). This will force the medicine into your urinary system and flush the bacteria out of your body. 3) Avoid sexual intercourse until you have finished all of your medicine and your symptoms have gone away. 4) Avoid caffeine, alcohol and spicy foods which may irritate the kidney and bladder. 5) You may use acetaminophen (Tylenol) or ibuprofen (Motrin, Advil) to control pain, unless another pain medicine was prescribed. [ NOTE : If you have chronic liver or kidney disease or ever had a stomach ulcer or GI bleeding, talk with your doctor before using these medicines.] Follow Up with your doctor or as advised by our staff for a repeat urine test in 10 days. This will ensure that your infection is fully cleared. [NOTE: If you had an X-ray or CT scan, it will be reviewed by a specialist. You will be notified of any new findings that may affect your care.] Get Prompt Medical Attention if any of the following occur: -- Fever over 100.4 F (38.0 C) after 48 hours of treatment -- No improvement by the third day of treatment -- Increasing back or abdominal pain -- Repeated vomiting or inability to take oral medicine -- Weakness, dizziness or fainting Flank Pain[Uncertain Cause] The flank is the area between the upper abdomen and the back. Pain here is often related to the kidneyan infection or a kidney stone. Other causes of flank pain include spinal arthritis, pinched nerve from a disk injury, back muscle strain or spasm. The cause of your flank pain is not certain and further tests may be needed. Home Care: You may use acetaminophen (Tylenol) or ibuprofen (Motrin, Advil) to control pain, unless another medicine was prescribed. [NOTE: If you have chronic liver or kidney disease or ever had a stomach ulcer or GI bleeding, talk with your doctor before using these medicines.] If the cause of your pain is coming from the muscles, ice or heat may give relief. During the first two days after injury, apply an ICE PACK to the painful area for 20 minutes every 2-4 hours. This will reduce swelling and pain. HEAT (hot shower, hot bath or heating pad) works well for muscle spasm. You can start with ice, then switch to heat after two days. Some patients feel best alternating ice and heat treatments. Use the one method that feels the best to you. Follow Up with your doctor or as advised by our staff for further evaluation if your symptoms are not improving over the next few days. Return Promptly or contact your doctor if any of the following occur: Repeated vomiting Fever of 100.4F (38C) or higher, or as directed by your healthcare provider Increasing flank pain Pain that spreads to the front of the abdomen Dizziness, weakness or fainting Blood in your urine Burning with urination or frequent urination Increasing pain in the leg Numbness or weakness in the leg You have been given the following additional information: Hypertension, To Be Confirmed Pyelonephritis, Male (Adult) Flank Pain, Uncertain Cause (Electronically signed by Matt Carpio Dr. 09/24/2016 8:49)
--- NOTE | 2016-09-24 08:50 | ED MED RECONCILIATION SUMMARY ---
Patient: SANA HANNAH Medication Reconciliation Report [facility] VisitID: [id number] [address] [place] [address] 46y, M Registration Date/Time: 09/22/2016 Weight: 88.4 kg Height/Length: 71 in. BMI: 27.2 ALLERGIES: None The patient's Home Medications are listed below: NONE. The source(s) of the original Home Medication information: Not obtained. The following Medications were given to the patient in the Emergency Department: IV NS IV Fluids bolus 0, then 1000 mL/hr, administered: 09/23/2016 12:16:00 AM Ceftriaxone [IVPB] IVPB bolus 0, then 2 gm 120 mL/hr, administered: 09/23/2016 12:29:00 AM Toradol [IVP] IVP 30 mg, administered: 09/23/2016 12:31:00 AM Dilaudid [IVP] IVP 1 mg, administered: 09/23/2016 12:35:00 AM Tylenol [PO] PO 650 mg, administered: 09/23/2016 1:09:00 AM Zofran [IVP] IVP 4 mg, administered: 09/23/2016 1:10:00 AM The following Medications were prescribed to the patient: None.
--- NOTE | 2016-09-24 08:50 | ED MAR SUMMARY ---
..... Medication Administration Record [facility] [address] [place] [address] Patient: SANA HANNAH Visit ID: [id number] 46y, M Weight: 88.4 kg Height/Length: 71 in BMI: 27.2 ALLERGIES: None Start 00:16 09/23/2016 Rajesh Pichardo R.N., Stop 01:17 09/23/2016 Cara Teran R.N. Medication Administered: IV NS (SALINE), Dose: IV Fluids over 1 hour(s), Rate: 1000 mL/hr, Dispensed: 1000 mL bag, Site: #1 left forearm. Medication Ordered: IV NS : initial bolus 1000 mL (1000 mL/hr), then none - for X1 (NOW). Start 00:29 09/23/2016 Rajesh Pichardo R.N., Stop 00:51 09/23/2016 Rajesh Pichardo R.N. Medication Administered: CEFTRIAXONE [IVPB], Dose: 2 gm IVPB over 20 minute(s), Rate: 120 mL/hr, Dispensed: 50 mL bag, Site: #1 left forearm. Medication Ordered: Ceftriaxone IV 2 gm/50mL (NOW). Given 00:31 09/23/2016 Rajesh Pichardo R.N. Medication Administered: TORADOL [IVP], Dose: 30 mg IVP over 2 minute(s), Site: #1 left forearm. Medication Ordered: Toradol IV 30 mg (NOW). Given 00:35 09/23/2016 Rajesh Pichardo R.N. Medication Administered: DILAUDID [IVP] (HYDROMORPHONE HCL PF), Dose: 1 mg IVP over 2 minute(s), Site: #1 left forearm. Medication Ordered: Dilaudid IV 1 mg (HIGH ALERT MEDICATION, NOW). Given 01:09 09/23/2016 Nicolas Mcgee R.N. Medication Administered: TYLENOL [PO] (ACETAMINOPHEN), Dose: 650 mg PO. Medication Ordered: Tylenol PO 650 mg (NOW). Given 01:10 09/23/2016 Nicolas Mcgee R.N. Medication Administered: ZOFRAN [IVP] (ONDANSETRON HCL), Dose: 4 mg IVP over 2 minute(s), Site: #1 left forearm. Medication Ordered: Zofran IV 4 mg (NOW).
== END 2016-09-23 02:50 | disposition home or self-care (01) ==
LOC: ED SRH 23:49
DX: N10 Acute pyelonephritis (principal); I10 Essential (primary) hypertension; R11.0 Nausea; F17.210 Nicotine dependence, cigarettes, uncomplicated
CPT/HCPCS: 90004; 90100; 90469; 92235; 95059